=== PATIENT | female | born 1975 | race Two or more races ===

== ENCOUNTER 2019-06-09 09:49 | Emergency (ER) | payer MEDICARE, MEDICAID ==
--- NOTE | 2019-06-09 09:53 | EDM.PDOC ---
ED HPI GENERAL MEDICAL PROBLEM - General Stated Complaint: KNEE PAIN,CHEST DISCOMFORT Time Seen by Provider: 06/09/19 09:51 Source of Information: Reports: Patient History Limitations: Reports: No Limitations - History of Present Illness INITIAL COMMENTS - FREE TEXT/NARRATIVE: HISTORY AND PHYSICAL: History of present illness: Patient is a 44-year-old female who presents to the emergency room today with complaints of right chest pain 5 days. Patient states she has a pinpoint area of pain into the right mid chest which is aggravated with movement, bending over at the waist or taking in deep breaths. When she is sitting still and breathing easy she states the pain does not bother her. 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 States she recently moved to [place] and has been seeing Dr. Vásquez, who has made her a referral to establish with a marine insulator, but has yet to have a set date/time. Besides the chest pain she offers no other concerns or complaints. Patient denies any fever, chills, headache, change in vision, syncope or near syncope. Denies any back pain, shortness of breath or cough. Denies any abdominal pain, nausea, vomiting, diarrhea, constipation or dysuria. Has not noted any blood in urine or stool. Patient has been eating and drinking appropriately. Review of systems: As per history of present illness and below otherwise all systems reviewed and negative. Past medical history: As per history of present illness and as reviewed below otherwise noncontributory. Surgical history: As per history of present illness and as reviewed below otherwise noncontributory. Social history: See social history for further information Family history: As per history of present illness and as reviewed below otherwise noncontributory. Physical exam: General: Well developed and well nourished 44-year-old female. Alert and oriented. Nontoxic appearing and in no acute distress. HEENT: Atraumatic, normocephalic, pupils equal and reactive bilaterally, negative for conjunctival pallor or scleral icterus, mucous membranes moist, trachea midline. No drooling or trismus noted. No meningeal signs. No hot potato voice noted. Lungs: Clear to auscultation, breath sounds equal bilaterally, chest is tender with palpation to the right of the sternum. Heart: S1S2, regular rhythm with rate of 50's without overt murmur Abdomen: Soft, nondistended, obese, nontender. Negative for masses. Negative for costovertebral tenderness. Pelvis: Stable nontender. Skin: Intact, warm, dry. No lesions or rashes noted. Extremities: Atraumatic, moves all extremities per self without difficulty or deficits, negative for cords or calf pain. Neurovascular unremarkable. Neuro: Awake, alert, oriented. Cranial nerves II through XII unremarkable. Cerebellum unremarkable. Motor and sensory unremarkable throughout. Exam nonfocal. Notes: Patient states her pain is gone after receiving the IV toradol. Her EKG shows bradycardia; with rate of 40-50's. She states she has had a lower pulse rate since her cardiac surgery and does take a beta dayanara. No previous EKG to compare with. No acute findings. Lab work is unremarkable with the exception of anemia, which patient states she has a known history of. Admission was offered, she declines. She does request that we set her up an appointment with cardiology , as she has not yet established care with anyone as of yet. We discussed signs and symptoms that would prompt her to return to the emergency room. She is aware of the risks versus benefits of discharge versus admission. Diagnostics: CBC, CMP, Troponin, EKG, CXR Therapeutics: Aspirin, Saline Lock, Toradol Prescription: Diclofenac 50mg PRN Impression: Chest pain Anemia Plan: 1. Continue taking all your home medications as directed. 2. Follow up with your primary care provider Dr Vásquez at [facility] as we discussed. 3. We made you a follow up appointment to establish with a Legal Internship, Dr Mccallum (Dr Guajardo) for 06/29/2019 at 10am. Please check-in and register at [facility]. 4. Return to the ED as needed and as discussed. Definitive disposition and diagnosis as appropriate pending reevaluation and review of above. - Related Data Allergies Allergy/AdvReac Type Severity Reaction Status Date / Time No Known Allergies Allergy Verified 06/09/19 09:54 Home Meds: Home Meds ALPRAZolam 2 mg PO TID 06/09/19 [History] Diclofenac Sodium [Voltaren] 50 mg PO TID PRN #30 tab.ec 06/09/19 [Rx] Metoprolol Tartrate 50 mg PO Q12HR 06/09/19 [History] Omeprazole 40 mg PO 06/09/19 [History] Simvastatin 20 mg PO 06/09/19 [History] Spironolactone [Aldactone] 25 mg PO 06/09/19 [History] ED ROS GENERAL - Review of Systems Review Of Systems: ROS reveals no pertinent complaints other than HPI. ED EXAM, GENERAL - Physical Exam Exam: See Below (See dictation) Course - Vital Signs Last Recorded V/S: Last Vital Signs Temp 96.7 F 06/09/19 11:17 Pulse 55 L 06/09/19 11:17 Resp 19 06/09/19 11:17 BP 144/59 H 06/09/19 11:17 Pulse Ox 100 06/09/19 11:17 - Orders/Labs/Meds Orders: Active Orders 24 hr Category Date Time Status EKG Documentation Completion [RC] STAT Care 06/09/19 09:55 Active Sodium Chloride 0.9% [Normal Saline] 1,000 ml Med 06/09/19 10:09 Active IV STAT Sodium Chloride 0.9% [Saline Flush] Med 06/09/19 09:55 Active 10 ml FLUSH ASDIRECTED PRN Sodium Chloride 0.9% [Saline Flush] Med 06/09/19 09:55 Active 2.5 ml FLUSH ASDIRECTED PRN Saline Lock Insert [OM.PC] Stat Oth 06/09/19 09:55 Ordered Medication Orders Sodium Chloride (Normal Saline) 1,000 mls @ 125 mls/hr IV STAT ONE Stop: 06/09/19 18:08 Last Admin: 06/09/19 10:21 Dose: 125 mls/hr Sodium Chloride (Saline Flush) 10 ml FLUSH ASDIRECTED PRN PRN Reason: Keep Vein Open Sodium Chloride (Saline Flush) 2.5 ml FLUSH ASDIRECTED PRN PRN Reason: Keep Vein Open Labs: Laboratory Tests 06/09/19 06/09/19 Range/Units 10:50 10:50 WBC 8.30 (4.0-11.0) K/uL RBC 4.39 (4.30-5.90) M/uL Hgb 10.1 L (12.0-16.0) g/dL Hct 33.8 L (36.0-46.0) % MCV 77.0 L (80.0-98.0) fL MCH 23.0 L (27.0-32.0) pg MCHC 29.9 L (31.0-37.0) g/dL RDW Std Deviation 45.9 (28.0-62.0) fl RDW Coeff of Robi 16 H (11.0-15.0) % Plt Count 404 H (150-400) K/uL MPV 9.70 (7.40-12.00) fL Neut % (Auto) 65.5 (48.0-80.0) % Lymph % (Auto) 26.3 (16.0-40.0) % [place] % (Auto) 6.6 (0.0-15.0) % Eos % (Auto) 1.4 (0.0-7.0) % Baso % (Auto) 0.2 (0.0-1.5) % Neut # (Auto) 5.4 (1.4-5.7) K/uL Lymph # (Auto) 2.2 (0.6-2.4) K/uL [place] # (Auto) 0.6 (0.0-0.8) K/uL Eos # (Auto) 0.1 (0.0-0.7) K/uL Baso # (Auto) 0.0 (0.0-0.1) K/uL Nucleated RBC % 0.0 /100WBC Nucleated RBCs # 0 K/uL Sodium 139 (136-145) mmol/L Potassium 3.8 (3.5-5.1) mmol/L Chloride 105 (98-107) mmol/L Carbon Dioxide 22.2 (21.0-32.0) mmol/L BUN 14 (7.0-18.0) mg/dL Creatinine 0.7 (0.6-1.0) mg/dL Est Cr Clr Drug Dosing 109.41 mL/min Estimated GFR (MDRD) > 60.0 ml/min Glucose 87 (74-106) mg/dL Calcium 9.0 (8.5-10.1) mg/dL Total Bilirubin 0.4 (0.2-1.0) mg/dL AST 16 (15-37) IU/L ALT 17 (14-63) IU/L Alkaline Phosphatase 67 (46-116) U/L Troponin I < 0.050 (0.000-0.056) ng/mL Total Protein 8.8 H (6.4-8.2) g/dL Albumin 3.8 (3.4-5.0) g/dL Globulin 5.0 H (2.6-4.0) g/dL Albumin/Globulin Ratio 0.8 L (0.9-1.6) Meds: Medications Generic Name Dose Route Start Last Admin Trade Name Freq PRN Reason Stop Dose Admin Sodium Chloride 1,000 mls @ 125 mls/hr 06/09/19 10:09 06/09/19 10:21 Normal Saline IV 06/09/19 18:08 125 mls/hr STAT ONE Administration Sodium Chloride 10 ml 06/09/19 09:55 Saline Flush FLUSH ASDIRECTED PRN Keep Vein Open Sodium Chloride 2.5 ml 06/09/19 09:55 Saline Flush FLUSH ASDIRECTED PRN Keep Vein Open Discontinued Medications Generic Name Dose Route Start Last Admin Trade Name Freq PRN Reason Stop Dose Admin Aspirin 324 mg 06/09/19 09:55 06/09/19 10:20 Aspirin PO 06/09/19 09:56 324 mg ONETIME ONE Administration Ketorolac Tromethamine 30 mg 06/09/19 10:09 06/09/19 10:21 Toradol IVPUSH 06/09/19 10:10 30 mg ONETIME ONE Administration Departure - Departure Time of Disposition: 11:36 Disposition: Home, Self-Care 01 Clinical Impression: Chest pain Qualifiers: Chest pain type: chest pain on breathing Qualified Code(s): R07.1 - Chest pain on breathing Anemia Qualifiers: Anemia type: unspecified type Qualified Code(s): D64.9 - Anemia, unspecified Prescriptions: Diclofenac Sodium [Voltaren] 50 mg PO TID PRN #30 tab.ec PRN Reason: Pain Instructions: Anemia, Nonspecific Chest Pain, [id number] Referrals: Will Zhong MD [Physician] - 06/29/19 10:00 am (Please arrive 15 minutes prior to appointment. Please bring photo ID and insurance cards) Forms: ED Department Discharge Additional Instructions: The following information is given to patients seen in the emergency department who are being discharged to home. This information is to outline your options for follow-up care. We provide all patients seen in our emergency department with a follow-up referral. The need for follow-up, as well as the timing and circumstances, are variable depending upon the specifics of your emergency department visit. If you don't have a primary care physician on staff, we will provide you with a referral. We always advise you to contact your personal physician following an emergency department visit to inform them of the circumstance of the visit and for follow-up with them and/or the need for any referrals to a consulting specialist. The emergency department will also refer you to a specialist when appropriate. This referral assures that you have the opportunity for follow-up care with a specialist. All of these measure are taken in an effort to provide you with optimal care, which includes your follow-up. Under all circumstances we always encourage you to contact your private physician who remains a resource for coordinating your care. When calling for follow-up care, please make the office aware that this follow-up is from your recent emergency room visit. If for any reason you are refused follow-up, please contact the [facility] Emergency Department at and asked to speak to the emergency department charge nurse. [facility] Primary [facility] [address] [place] [id number] [place] [address] 1. Continue taking all your home medications as directed. 2. Follow up with your primary care provider Dr Vásquez at [facility] as we discussed. 3. We made you a follow up appointment to establish with a Legal Internship, Dr Mccallum (Dr Guajardo) for 06/29/2019 at 10am. Please check-in and register at [facility] 15 minutes before you appointment time. 4. Return to the ED as needed and as discussed. - My Orders Last 24 Hours: My Active Orders 06/09/19 09:55 EKG Documentation Completion [RC] STAT Sodium Chloride 0.9% [Saline Flush] 10 ml FLUSH ASDIRECTED PRN Sodium Chloride 0.9% [Saline Flush] 2.5 ml FLUSH ASDIRECTED PRN Saline Lock Insert [OM.PC] Stat 06/09/19 10:09 Sodium Chloride 0.9% [Normal Saline] 1,000 ml IV STAT - Assessment/Plan Last 24 Hours: My Active Orders 06/09/19 09:55 EKG Documentation Completion [RC] STAT Sodium Chloride 0.9% [Saline Flush] 10 ml FLUSH ASDIRECTED PRN Sodium Chloride 0.9% [Saline Flush] 2.5 ml FLUSH ASDIRECTED PRN Saline Lock Insert [OM.PC] Stat 06/09/19 10:09 Sodium Chloride 0.9% [Normal Saline] 1,000 ml IV STAT
[2019-06-09] MEDS ORDERED: Sodium Chloride 0.9% 10 ML Syringe FLUSH PRN (09:55)
[2019-06-09] MEDS ORDERED: Sodium Chloride 0.9% 2.5 ML Syringe FLUSH PRN (09:55)
[2019-06-09] MEDS ORDERED: Aspirin 81 MG Tab.Chew PO ONE (09:55)
[2019-06-09] MEDS ORDERED: Sodium Chloride 0.9% 1,000 ML IV ONE (10:09)
[2019-06-09] MEDS ORDERED: Ketorolac 30 MG/ML SDV IVPUSH ONE (10:09)
--- NOTE | 2019-06-09 11:17 | CR ---
Chest: Portable view of the chest was obtained. Comparison: No prior chest x-ray is available. Heart size and mediastinum are within normal limits for portable technique. Previous sternotomy is noted from prosthetic heart valve. Lungs are clear with no acute parenchymal change. Impression: 1. Previous sternotomy with prosthetic heart valve. 2. Nothing acute is otherwise seen on portable chest x-ray. Diagnostic code #2 MTDD
[2019-06-09 11:24] LABS: BLOOD UREA NITROGEN,BUN 14 mg/dL (7.0-18.0); CARBON DIOXIDE,CO2 22.2 mmol/L (21.0-32.0); CHLORIDE,CL 105 mmol/L (98-107); GLUCOSE RANDOM 87 mg/dL (74-106); POTASSIUM,K 3.8 mmol/L (3.5-5.1); SODIUM,NA 139 mmol/L (136-145)
== END 2019-06-09 11:54 | disposition home or self-care (01) ==
LOC: MW.ED 09:49
DX: R07.1 Chest pain on breathing (principal); D64.9 Anemia, unspecified; Z95.2 Presence of prosthetic heart valve
CPT/HCPCS: 36415; 71045; 80053; 84484; 85025; 93005; 96361; 96374; 99285; A9270; J1885; J7040; 96360; 99284

== ENCOUNTER 2019-08-20 20:25 | Emergency (ER) | payer MEDICARE, MEDICAID ==
[2019-08-20] MEDS ORDERED: Sodium Chloride 0.9% 1,000 ML IV ONE (21:33)
[2019-08-20] MEDS ORDERED: Ondansetron 4 MG/2 ML SDV IVPUSH ONE (21:40)
[2019-08-20] MEDS ORDERED: Ketorolac 30 MG/ML SDV IVPUSH ONE (22:01)
[2019-08-20] MEDS ORDERED: Ketorolac 30 MG/ML SDV ONE (22:03)
[2019-08-20 22:23] LABS: BLOOD UREA NITROGEN,BUN 15 mg/dL (7.0-18.0); CARBON DIOXIDE,CO2 24.5 mmol/L (21.0-32.0); CHLORIDE,CL 102 mmol/L (98-107); GLUCOSE RANDOM 92 mg/dL (74-106); LIPASE 171 U/L (73-393); POTASSIUM,K 4.1 mmol/L (3.5-5.1); SODIUM,NA 137 mmol/L (136-145)
--- NOTE | 2019-08-21 00:09 | EDM.PDOC ---
ED HPI GENERAL MEDICAL PROBLEM - General Chief Complaint: Abdominal Pain Stated Complaint: ABDOMINAL PAINS Time Seen by Provider: 08/20/19 21:35 Source of Information: Reports: Patient History Limitations: Reports: No Limitations - History of Present Illness Duration: Hour(s): Location: Reports: Abdomen Quality: Reports: Ache, Burning Severity: Mild Improves with: Reports: None Worsens with: Reports: None Associated Symptoms: Reports: No Other Symptoms, Nausea/Vomiting abdominal Pain Score (Numeric/FACES): 8 - Related Data Allergies Allergy/AdvReac Type Severity Reaction Status Date / Time No Known Allergies Allergy Verified 08/20/19 21:24 Home Meds: Home Meds ALPRAZolam 2 mg PO TID 06/09/19 [History] Metoprolol Tartrate 50 mg PO ASDIRECTED 06/09/19 [History] Omeprazole 40 mg PO DAILY 06/09/19 [History] Simvastatin 20 mg PO DAILY 06/09/19 [History] Spironolactone [Aldactone] 25 mg PO DAILY 06/09/19 [History] Past Medical History HEENT History: Reports: None Cardiovascular History: Reports: Arrhythmia Other Cardiovascular History: 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 Respiratory History: Reports: Bronchitis, Recurrent Gastrointestinal History: Reports: GERD 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 Musculoskeletal History: Reports: Arthritis Neurological History: Reports: None Psychiatric History: Reports: Anxiety Endocrine/Metabolic History: Reports: None Hematologic History: Reports: None - Infectious Disease History Infectious Disease History: Reports: Chicken Pox - Past Surgical History Cardiovascular Surgical History: Reports: Valve Replacement GI Surgical History: Reports: Cholecystectomy Female Surgical History: Reports: Tubal Ligation Social & Family History - Family History Family Medical History: Noncontributory - Tobacco Use Smoking Status *Q: Never Smoker - Caffeine Use Caffeine Use: Reports: None - Recreational Drug Use Recreational Drug Use: No ED ROS GENERAL - Review of Systems Review Of Systems: See Below Constitutional: Reports: No Symptoms HEENT: Reports: No Symptoms Respiratory: Reports: No Symptoms Cardiovascular: Reports: No Symptoms Endocrine: Reports: No Symptoms GI/Abdominal: Reports: No Symptoms, Abdominal Pain : Reports: No Symptoms Musculoskeletal: Reports: No Symptoms Skin: Reports: No Symptoms Neurological: Reports: No Symptoms Psychiatric: Reports: No Symptoms Hematologic/Lymphatic: Reports: No Symptoms Immunologic: Reports: No Symptoms ED EXAM, GI/ABD - Physical Exam Exam: See Below Exam Limited By: No Limitations General Appearance: Alert, WD/WN, No Apparent Distress Ears: Normal External Exam, Normal Canal, Hearing Grossly Normal, Normal TMs Nose: Normal Inspection, Normal Mucosa Throat/Mouth: Normal Inspection, Normal Lips Head: Atraumatic, Normocephalic Neck: Normal Inspection, Supple, Non-Tender Respiratory/Chest: No Respiratory Distress, Lungs Clear, Normal Breath Sounds, No Accessory Muscle Use, Chest Non-Tender Cardiovascular: Normal Peripheral Pulses, Regular Rate, Rhythm, No JVD, No Murmur GI/Abdominal Exam: Normal Bowel Sounds, Soft, Non-Tender, No Organomegaly, No Distention Back Exam: Normal Inspection, Full Range of Motion Extremities: Normal Inspection, Normal Range of Motion Neurological: Alert, Oriented, CN II-XII Intact, Normal Cognition, Normal Reflexes, No Motor/Sensory Deficits Psychiatric: Normal Affect, Normal Mood Skin Exam: Warm, Dry, Intact, Normal Color, No Rash Lymphatic: No Adenopathy Course - Vital Signs Text/Narrative:: She has been given fluids V fluids and feels better she will be given medicine for nausea and discharged home Last Recorded V/S: Last Vital Signs Temp 99.0 F 08/20/19 21:26 Pulse 60 08/20/19 21:26 Resp 18 08/20/19 21:26 BP 124/60 08/20/19 21:26 Pulse Ox 99 08/20/19 21:26 - Orders/Labs/Meds Orders: Active Orders 24 hr Category Date Time Status EKG 12 Lead [EKG Documentation Completion] [RC] STAT Care 08/20/19 22:11 Active Labs: Laboratory Tests 08/20/19 08/20/19 08/20/19 Range/Units 21:50 21:50 22:49 WBC 9.02 (4.0-11.0) K/uL RBC 4.54 (4.30-5.90) M/uL Hgb 10.8 L (12.0-16.0) g/dL Hct 34.7 L (36.0-46.0) % MCV 76.4 L (80.0-98.0) fL MCH 23.8 L (27.0-32.0) pg MCHC 31.1 (31.0-37.0) g/dL RDW Std Deviation 44.6 (28.0-62.0) fl RDW Coeff of Robi 16 H (11.0-15.0) % Plt Count 440 H (150-400) K/uL MPV 9.60 (7.40-12.00) fL Neut % (Auto) 82.8 H (48.0-80.0) % Lymph % (Auto) 12.2 L (16.0-40.0) % [place] % (Auto) 3.9 (0.0-15.0) % Eos % (Auto) 1.1 (0.0-7.0) % Baso % (Auto) 0.0 (0.0-1.5) % Neut # (Auto) 7.5 H (1.4-5.7) K/uL Lymph # (Auto) 1.1 (0.6-2.4) K/uL [place] # (Auto) 0.4 (0.0-0.8) K/uL Eos # (Auto) 0.1 (0.0-0.7) K/uL Baso # (Auto) 0.0 (0.0-0.1) K/uL Nucleated RBC % 0.0 /100WBC Nucleated RBCs # 0 K/uL Sodium 137 (136-145) mmol/L Potassium 4.1 (3.5-5.1) mmol/L Chloride 102 (98-107) mmol/L Carbon Dioxide 24.5 (21.0-32.0) mmol/L BUN 15 (7.0-18.0) mg/dL Creatinine 0.7 (0.6-1.0) mg/dL Est Cr Clr Drug Dosing 109.41 mL/min Estimated GFR (MDRD) > 60.0 ml/min Glucose 92 (74-106) mg/dL Calcium 8.7 (8.5-10.1) mg/dL Total Bilirubin 0.7 (0.2-1.0) mg/dL AST 21 (15-37) IU/L ALT 20 (14-63) IU/L Alkaline Phosphatase 71 (46-116) U/L Total Protein 8.7 H (6.4-8.2) g/dL Albumin 3.9 (3.4-5.0) g/dL Globulin 4.8 H (2.6-4.0) g/dL Albumin/Globulin Ratio 0.8 L (0.9-1.6) Lipase 171 (73-393) U/L Urine Color YELLOW Urine Appearance CLEAR Urine pH 6.0 (5.0-8.0) Ur Specific [place] >= 1.030 (1.001-1.035) Urine Protein NEGATIVE (NEGATIVE) mg/dL Urine Glucose (UA) NEGATIVE (NEGATIVE) mg/dL Urine Ketones NEGATIVE (NEGATIVE) mg/dL Urine Occult Blood NEGATIVE (NEGATIVE) Urine Nitrite NEGATIVE (NEGATIVE) Urine Bilirubin NEGATIVE (NEGATIVE) Urine Urobilinogen 0.2 (<2.0) EU/dL Ur Leukocyte Esterase NEGATIVE (NEGATIVE) Meds: Medications Discontinued Medications Generic Name Dose Route Start Last Admin Trade Name Adalidq PRN Reason Stop Dose Admin Sodium Chloride 1,000 mls @ 999 mls/hr 08/20/19 21:33 08/20/19 22:00 Normal Saline IV 08/20/19 22:33 999 mls/hr STAT ONE Administration Ketorolac Tromethamine 30 mg 08/20/19 22:01 08/20/19 22:05 Toradol IVPUSH 08/20/19 22:02 30 mg ONETIME ONE Administration Ketorolac Tromethamine Confirm 08/20/19 22:03 Toradol Administered 08/20/19 22:04 Dose 30 mg .ROUTE .STK-MED ONE Ondansetron HCl 4 mg 08/20/19 21:40 08/20/19 22:05 Zofran IVPUSH 08/20/19 21:41 4 mg ONETIME ONE Administration Departure - Departure Time of Disposition: 00:10 Disposition: Home, Self-Care 01 Condition: Good Clinical Impression: Gastroenteritis - Discharge Information Referrals: Efra Vásquez MD [Primary Care Provider] - Sepsis Event Note - Evaluation Sepsis Screening Result: No Definite Risk - Focused Exam Vital Signs: Vital Signs Temp Pulse Resp BP Pulse Ox 08/20/19 21:26 99.0 F 60 18 124/60 99 Date Exam was Performed: 08/21/19 Time Exam was Performed: 00:04 - My Orders Last 24 Hours: My Active Orders 08/20/19 22:11 EKG 12 Lead [EKG Documentation Completion] [RC] STAT - Assessment/Plan Last 24 Hours: My Active Orders 01/02/20 22:11 EKG 12 Lead [EKG Documentation Completion] [RC] STAT
== END 2019-08-21 00:21 | disposition home or self-care (01) ==
LOC: MW.ED 20:25
DX: K52.9 Noninfective gastroenteritis and colitis, unspecified (principal); K21.9 Gastro-esophageal reflux disease without esophagitis; M19.90 Unspecified osteoarthritis, unspecified site; F41.9 Anxiety disorder, unspecified; Z79.899 Other long term (current) drug therapy
CPT/HCPCS: 36415; 80053; 81003; 83690; 85025; 93005; 96361; 96374; 96375; 99284; J1885; J2405; J7030; 99283

== ENCOUNTER 2019-09-30 18:27 | Emergency (ER) | payer MEDICARE, MEDICAID ==
--- NOTE | 2019-09-30 19:10 | EDM.PDOC ---
ED HPI GENERAL MEDICAL PROBLEM - General Chief Complaint: General Stated Complaint: FLU SYMPTOMS Time Seen by Provider: 09/30/19 18:37 Source of Information: Reports: Patient History Limitations: Reports: No Limitations - History of Present Illness INITIAL COMMENTS - FREE TEXT/NARRATIVE: HISTORY AND PHYSICAL: History of present illness: Review of systems: As per history of present illness and below otherwise all systems reviewed and negative. Past medical history: As per history of present illness and as reviewed below otherwise noncontributory. Surgical history: As per history of present illness and as reviewed below otherwise noncontributory. Social history: See social history for further information Family history: As per history of present illness and as reviewed below otherwise noncontributory. Physical exam: General: HEENT: Atraumatic, normocephalic, pupils equal and reactive bilaterally, negative for conjunctival pallor or scleral icterus, mucous membranes moist, TMs normal bilaterally, throat clear, neck supple, nontender, trachea midline. No drooling or trismus noted. No meningeal signs. No hot potato voice noted. Lungs: Clear to auscultation, breath sounds equal bilaterally, chest nontender. Heart: S1S2, regular rate and rhythm without overt murmur Abdomen: Soft, nondistended, nontender. Negative for masses or hepatosplenomegaly. Negative for costovertebral tenderness. Pelvis: Stable nontender. Genitourinary: Deferred. Rectal: Deferred. Skin: Intact, warm, dry. No lesions or rashes noted. Extremities: Atraumatic, moves all extremities per self without difficulty or deficits, negative for cords or calf pain. Neurovascular unremarkable. Neuro: Awake, alert, oriented. Cranial nerves II through XII unremarkable. Cerebellum unremarkable. Motor and sensory unremarkable throughout. Exam nonfocal. Notes: Supportive care measures were reviewed and discussed. Voices understanding and is agreeable to plan of care. Denies any further questions or concerns at this time. Diagnostics: Influenza Therapeutics: Prescription: Impression: Plan: Definitive disposition and diagnosis as appropriate pending reevaluation and review of above. Headache Pain Score (Numeric/FACES): 8 - Related Data Allergies Allergy/AdvReac Type Severity Reaction Status Date / Time No Known Allergies Allergy Verified 09/30/19 18:38 Home Meds: Home Meds ALPRAZolam 2 mg PO TID 06/09/19 [History] Omeprazole 40 mg PO DAILY 06/09/19 [History] Simvastatin 20 mg PO DAILY 06/09/19 [History] Spironolactone [Aldactone] 25 mg PO DAILY 06/09/19 [History] Ondansetron [Zofran Odt] 8 mg PO Q6H PRN #20 tab.rapdis 08/21/19 [Rx] Past Medical History HEENT History: Reports: None Cardiovascular History: Reports: Arrhythmia Other Cardiovascular History: 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 Respiratory History: Reports: Bronchitis, Recurrent Gastrointestinal History: Reports: GERD 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 Musculoskeletal History: Reports: Arthritis Neurological History: Reports: None Psychiatric History: Reports: Anxiety Endocrine/Metabolic History: Reports: None Hematologic History: Reports: None - Infectious Disease History Infectious Disease History: Reports: Chicken Pox - Past Surgical History Cardiovascular Surgical History: Reports: Valve Replacement GI Surgical History: Reports: Cholecystectomy Female Surgical History: Reports: Tubal Ligation Social & Family History - Family History Family Medical History: Noncontributory - Tobacco Use Smoking Status *Q: Never Smoker Second Hand Smoke Exposure: No - Caffeine Use Caffeine Use: Reports: None - Recreational Drug Use Recreational Drug Use: No Course - Vital Signs Last Recorded V/S: Last Vital Signs Temp 97.1 F 09/30/19 18:41 Pulse 61 09/30/19 18:41 Resp 16 09/30/19 18:41 BP 122/62 09/30/19 18:41 Pulse Ox 96 09/30/19 18:41 - Orders/Labs/Meds Orders: Active Orders 24 hr Category Date Time Status INFLUENZA A+B AG SCREEN [RM] Stat Lab 09/30/19 19:04 Ordered Departure - Discharge Information Referrals: Efra Vásquez MD [Primary Care Provider] - Sepsis Event Note - Evaluation Sepsis Screening Result: No Definite Risk - Focused Exam Vital Signs: Vital Signs Temp Pulse Resp BP Pulse Ox 09/30/19 18:41 97.1 F 61 16 122/62 96 Date Exam was Performed: 09/30/19 Time Exam was Performed: 19:09 - My Orders Last 24 Hours: My Active Orders 09/30/19 19:04 INFLUENZA A+B AG SCREEN [RM] Stat - Assessment/Plan Last 24 Hours: My Active Orders 09/30/19 19:04 INFLUENZA A+B AG SCREEN [RM] Stat
--- NOTE | 2019-09-30 19:39 | EDM.PDOC ---
ED HPI GENERAL MEDICAL PROBLEM - General Chief Complaint: General Stated Complaint: FLU SYMPTOMS Time Seen by Provider: 09/30/19 18:37 Source of Information: Reports: Patient History Limitations: Reports: No Limitations - History of Present Illness INITIAL COMMENTS - FREE TEXT/NARRATIVE: CC cough HPI: This is a 44-year-old female whose is sick at home with a viral upper respiratory illness. Patient is developed a cough and a low-grade fever. She has no nausea vomiting constipation diarrhea but is having a sore throat and body aches. No chest pain PMHX/PSHX: Coronary artery disease with bypass surgery Social History: Negative for tobacco, negative for alcohol, negative for street drugs or marijuana Family history: Hypertension ROS: see chart PE: VS afebrile vital signs stable General: No apparent distress Head: Atraumatic normocephalic no lumps bumps or bruises Eyes: EOMI PERRLA Ears: TMs intact no hemotympanum no signs of infection no mastoid tenderness Nose: No epistaxis nares patent no septal wall hematoma Throat: No pharyngeal erythema or exudate no tonsillar enlargement Neck: Supple, no cervical lymphadenopathy Chest wall: No point tenderness Heart: Regular rate and rhythm without murmur gallop or rub Lungs: Clear to auscultation and percussion without rales rhonchi or wheeze Abdomen: Soft nontender nondistended without guarding rigidity or rebound Neck: No spinal point tenderness full range of motion in all 6 directions Back: No spinal paraspinal or CVA tenderness Extremities: full rom through out. no effusions skin: Warm dry intact no rashes neurologic: cranial nerves II through XII intact. No focal motor or sensory deficits noted MDM: Differential diagnosis: ED course: No signs of pneumonia or pharyngitis. I suspect viral illness. Patient stable for discharge. Not hypoxic tachypneic or exhibiting any respiratory distress or retractions Diagnosis: Viral URI Disposition: Home Headache Pain Score (Numeric/FACES): 8 - Related Data Allergies Allergy/AdvReac Type Severity Reaction Status Date / Time No Known Allergies Allergy Verified 09/30/19 18:38 Home Meds: Home Meds ALPRAZolam 2 mg PO TID 06/09/19 [History] Omeprazole 40 mg PO DAILY 06/09/19 [History] Simvastatin 20 mg PO DAILY 06/09/19 [History] Spironolactone [Aldactone] 25 mg PO DAILY 06/09/19 [History] Ondansetron [Zofran Odt] 8 mg PO Q6H PRN #20 tab.kranthidis 08/21/19 [Rx] Past Medical History HEENT History: Reports: None Cardiovascular History: Reports: Arrhythmia Other Cardiovascular History: 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 Respiratory History: Reports: Bronchitis, Recurrent Gastrointestinal History: Reports: GERD APPEALS RN History: Reports: Other APPEALS RN History: x4 Musculoskeletal History: Reports: Arthritis Neurological History: Reports: None Psychiatric History: Reports: Anxiety Endocrine/Metabolic History: Reports: None Hematologic History: Reports: None - Infectious Disease History Infectious Disease History: Reports: Chicken Pox - Past Surgical History Cardiovascular Surgical History: Reports: Valve Replacement GI Surgical History: Reports: Cholecystectomy Female Surgical History: Reports: Tubal Ligation Social & Family History - Family History Family Medical History: Noncontributory - Tobacco Use Smoking Status *Q: Never Smoker Second Hand Smoke Exposure: No - Caffeine Use Caffeine Use: Reports: None - Recreational Drug Use Recreational Drug Use: No ED ROS GENERAL - Review of Systems Review Of Systems: Comprehensive ROS is negative, except as noted in HPI. ED EXAM, GENERAL - Physical Exam Exam: See Below Free Text/Narrative:: See my dictation Course - Vital Signs Last Recorded V/S: Last Vital Signs Temp 36.2 C 09/30/19 18:41 Pulse 61 09/30/19 18:41 Resp 16 09/30/19 18:41 BP 122/62 09/30/19 18:41 Pulse Ox 96 09/30/19 18:41 Departure - Departure Time of Disposition: 19:38 Disposition: Home, Self-Care 01 Clinical Impression: Viral URI - Discharge Information Instructions: Upper Respiratory Infection, Adult, [id number] Referrals: Efra Vásquez MD [Primary Care Provider] - Forms: ED Department Discharge Additional Instructions: URI You were evaluated and treated in the emergency department for an upper respiratory infection (URI). URIs may include nasal congestion, sore throat, sinus pressure, headaches, earaches, eye irritation, cough and fevers. Nearly all URIs are caused by viruses and antibiotics will not help and are not recommended. Viral infections like this are self-limited. The goal of treatment is symptom relief. Take TheraFlu or Tylenol and ibuprofen as needed for body aches. Push fluids. Place a humidifier in the bedroom. You should return immediately if: -symptoms are worsening -you develop shortness of breath -you develop severe headache or neck stiffness -you develop any other severe pain Sepsis Event Note - Evaluation Sepsis Screening Result: No Definite Risk - Focused Exam Vital Signs: Vital Signs Temp Pulse Resp BP Pulse Ox 09/30/19 18:41 36.2 C 61 16 122/62 96 Date Exam was Performed: 09/30/19 Time Exam was Performed: 19:37
== END 2019-09-30 20:03 | disposition home or self-care (01) ==
LOC: MW.ED 18:27
DX: J06.9 Acute upper respiratory infection, unspecified (principal); K21.9 Gastro-esophageal reflux disease without esophagitis; J40 Bronchitis, not specified as acute or chronic; M19.90 Unspecified osteoarthritis, unspecified site; F41.9 Anxiety disorder, unspecified; Z79.899 Other long term (current) drug therapy
CPT/HCPCS: 87804; 99282; 99283

== ENCOUNTER 2020-05-06 23:18 | Emergency (ER) | payer MEDICARE, MEDICAID ==
[2020-05-07] MEDS ORDERED: Sodium Chloride 0.9% 10 ML Syringe FLUSH PRN (00:27)
[2020-05-07] MEDS ORDERED: Acetaminophen 500 MG Tab PO ONE (00:27)
[2020-05-07] MEDS ORDERED: Sodium Chloride 0.9% 2.5 ML Syringe FLUSH PRN (00:27)
[2020-05-07] MEDS ORDERED: fentaNYL 50 MCG/ML SDV IVPUSH ONE (00:27)
[2020-05-07] MEDS ORDERED: Alum Hydrox/Mag Hydrox/Simeth 15 ML, Lidocaine 2% 5 ML PO ONE ×2 (00:28)
--- NOTE | 2020-05-07 01:20 | EDM.PDOC ---
ED [facility] GENERAL MEDICAL PROBLEM - General Chief Complaint: Abdominal Pain Stated Complaint: ABDOMINAL PAIN Time Seen by Provider: 05/06/20 23:20 Source of Information: Reports: Patient History Limitations: Reports: No Limitations - History of Present Illness INITIAL COMMENTS - FREE TEXT/NARRATIVE: 45-year-old female with past medical history of WPW syndrome status post ablation, status post tricuspid valve replacement, hyperlipidemia, GERD, gastroparesis presenting with abdominal pain. Patient worse the onset of periumbilical abdominal pain around 30 minutes prior to arrival. Pain started at rest. Radiates to the suprapubic region of the abdomen but worse in the periumbilical region. Pain is better while lying supine, nothing makes it worse. Pain is been constant since the onset, rated as 5 out of 10, described as "twisting". Accompanied by some nausea but no vomiting. Nausea has since resolved. She denies any fever, chest pain, shortness of breath, hematemesis, diarrhea, rectal bleeding, vaginal bleeding or discharge, dysuria, urinary frequency, flank pain, or hematuria. ROS: A 10-point review of systems was negative, except as noted in the HPI (or in the ROS section of this note). Past medical history: Reviewed, no additional pertinent history. Surgical history: Reviewed in system, no additional pertinent history. Social history: Reviewed in system, no additional pertinent history. Family history: Reviewed in system, no additional pertinent history. PHYSICAL EXAM Vital signs reviewed. Nursing notes reviewed. Constitutional: Awake, alert, non-distressed. Head: Normocephalic, atraumatic. Eyes: EOMI, conjunctiva normal, no discharge, no scleral icterus. Ears, Nose, Throat: External ears and nose normal, moist oral mucosa. Cardiovascular: 2+ radial pulse, capillary refill less than 2 seconds. Pulmonary: normal work of breathing, no accessory muscle use. Abdomen/GI: Exam somewhat limited by habitus (BMI 42), soft, mild periumbilical tenderness, nondistended, no guarding or rigidity, no masses. No CVA tenderness. Musculoskeletal: No deformities. Integumentary: Appropriate color for ethnicity, warm, dry, no pallor or jaundice, no rash. Neurologic: Alert, answering questions appropriately, normal speech, no facial droop, moving all extremities well. Psychiatric: Appropriate mood and affect, normal thought process. abdomen Pain Score (Numeric/FACES): 9 - Related Data Allergies Allergy/AdvReac Type Severity Reaction Status Date / Time No Known Allergies Allergy Verified 05/06/20 23:42 Home Meds: Home Meds ALPRAZolam 2 mg PO TID 06/09/19 [History] Omeprazole 40 mg PO DAILY 06/09/19 [History] Simvastatin 20 mg PO DAILY 06/09/19 [History] Spironolactone [Aldactone] 25 mg PO DAILY 06/09/19 [History] Acetaminophen [Acetaminophen Extra Strength] 500 - 1,000 mg PO Q6H PRN #30 tablet 05/07/20 [Rx] Ibuprofen 400 mg PO Q6H PRN #20 tablet 05/07/20 [Rx] Past Medical History HEENT History: Reports: Impaired Vision Cardiovascular History: Reports: Arrhythmia, High Cholesterol Other Cardiovascular History: 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 Respiratory History: Reports: Bronchitis, Recurrent Gastrointestinal History: Reports: GERD Genitourinary History: Reports: None [employer] History: Reports: Other [employer] History: x4 Musculoskeletal History: Reports: Arthritis Neurological History: Reports: None Psychiatric History: Reports: Anxiety Endocrine/Metabolic History: Reports: None Hematologic History: Reports: None - Infectious Disease History Infectious Disease History: Reports: Chicken Pox - Past Surgical History HEENT Surgical History: Reports: None Cardiovascular Surgical History: Reports: Valve Replacement Respiratory Surgical History: Reports: None GI Surgical History: Reports: Cholecystectomy Female Surgical History: Reports: Tubal Ligation Musculoskeletal Surgical History: Reports: None Social & Family History - Family History Family Medical History: Noncontributory - Tobacco Use Smoking Status *Q: Never Smoker Second Hand Smoke Exposure: No - Caffeine Use Caffeine Use: Reports: Coffee - Recreational Drug Use Recreational Drug Use: No ED ROS GENERAL - Review of Systems Review Of Systems: See Below ED EXAM, GI/ABD - Physical Exam Exam: See Below Course - Vital Signs Text/Narrative:: 45-year-old female presenting with sudden onset periumbilical abdominal pain and some nausea. Patient hemodynamically stable, afebrile, well-appearing, looks nontoxic. Differential diagnosis includes but is not limited to: Appendicitis, pancreatitis, gastritis, ileus, bowel obstruction, intra-abdominal infection, kidney stone, UTI, ovarian cyst, ovarian torsion, , uterine fibroids, AAA, enteritis, and many others. CBC shows mild leukocytosis, mild microcytic anemia, normal platelets. Lactate within normal limits. Electrolytes and renal function reassuring. Troponin testing negative. Lipase within normal limits. LFTs reassuring. Urinalysis bland, no blood or evidence of infection. CT abdomen/pelvis shows a cirrhotic liver but no evidence of an acute process in the abdomen or pelvis. Pain improved after analgesic medications. No evidence of an intra-abdominal surgical emergency or infection such as appendicitis or pancreatitis. No evidence of ileus or bowel obstruction. Urinalysis is not infected. No evidence of a pelvic abnormality based on CT imaging and low suspicion for ovarian torsion or cyst or infection based on location of pain and patient's description of her symptoms. No evidence of AAA. Given negative work-up and well appearance, patient is stable to discharge home with outpatient primary care follow-up. Recommended [id number] acetaminophen ibuprofen as needed for pain. Plan: Patient is stable to discharge home with outpatient primary care clinic follow-up. Strict emergency department return precautions were provided, patient indicated understanding. All questions were answered prior to departure. Discharged in good condition. Last Recorded V/S: Last Vital Signs Temp 36.2 C 05/06/20 23:34 Pulse 57 L 05/07/20 02:15 Resp 17 05/07/20 02:15 BP 126/49 L 05/07/20 02:15 Pulse Ox 98 05/07/20 02:15 - Orders/Labs/Meds Orders: Active Orders 24 hr Category Date Time Status Pulse Oximetry [RC] ASDIRECTED Care 05/07/20 00:27 Active Nothing Per Oral Diet [DIET] Diet 05/06/20 Dinner Active Sodium Chloride 0.9% [Saline Flush] Med 05/07/20 00:27 Active 10 ml FLUSH ASDIRECTED PRN Sodium Chloride 0.9% [Saline Flush] Med 05/07/20 00:27 Active 2.5 ml FLUSH ASDIRECTED PRN Saline Lock Insert [OM.PC] Stat Oth 05/07/20 00:27 Ordered Medication Orders Sodium Chloride (Saline Flush) 10 ml FLUSH ASDIRECTED PRN PRN Reason: Keep Vein Open Last Admin: 05/07/20 00:58 Dose: 10 ml Documented by: MC Sodium Chloride (Saline Flush) 2.5 ml FLUSH ASDIRECTED PRN PRN Reason: Keep Vein Open Last Admin: 05/07/20 00:58 Dose: 2.5 ml Documented by: MC Labs: Laboratory Tests 05/06/20 05/06/20 05/07/20 Range/Units 23:51 23:51 01:00 WBC 12.06 H (4.0-11.0) K/uL RBC 4.44 (4.30-5.90) M/uL Hgb 10.8 L (12.0-16.0) g/dL Hct 34.7 L (36.0-46.0) % MCV 78.2 L (80.0-98.0) fL MCH 24.3 L (27.0-32.0) pg MCHC 31.1 (31.0-37.0) g/dL RDW Std Deviation 41.9 (28.0-62.0) fl RDW Coeff of Robi 15 (11.0-15.0) % Plt Count 391 (150-400) K/uL MPV 9.70 (7.40-12.00) fL Neut % (Auto) 77.5 (48.0-80.0) % Lymph % (Auto) 13.8 L (16.0-40.0) % [place] % (Auto) 7.6 (0.0-15.0) % Eos % (Auto) 0.9 (0.0-7.0) % Baso % (Auto) 0.2 (0.0-1.5) % Neut # (Auto) 9.3 H (1.4-5.7) K/uL Lymph # (Auto) 1.7 (0.6-2.4) K/uL [place] # (Auto) 0.9 H (0.0-0.8) K/uL Eos # (Auto) 0.1 (0.0-0.7) K/uL Baso # (Auto) 0.0 (0.0-0.1) K/uL Lactate (0.20-2.00) mmol/L Sodium (136-145) mmol/L Potassium (3.5-5.1) mmol/L Chloride (98-107) mmol/L Carbon Dioxide (21.0-32.0) mmol/L BUN (7.0-18.0) mg/dL Creatinine (0.6-1.0) mg/dL Est Cr Clr Drug Dosing mL/min Estimated GFR (MDRD) ml/min Glucose (74-106) mg/dL Calcium (8.5-10.1) mg/dL Total Bilirubin (0.2-1.0) mg/dL AST (15-37) IU/L ALT (14-63) IU/L Alkaline Phosphatase (46-116) U/L Troponin I (0.000-0.056) ng/mL Total Protein (6.4-8.2) g/dL Albumin (3.4-5.0) g/dL Globulin (2.6-4.0) g/dL Albumin/Globulin Ratio (0.9-1.6) Lipase (73-393) U/L Urine Color YELLOW Urine Appearance CLEAR Urine pH 5.5 (5.0-8.0) Ur Specific [place] 1.020 (1.001-1.035) Urine Protein NEGATIVE (NEGATIVE) mg/dL Urine Glucose (UA) NEGATIVE (NEGATIVE) mg/dL Urine Ketones NEGATIVE (NEGATIVE) mg/dL Urine Occult Blood NEGATIVE (NEGATIVE) Urine Nitrite NEGATIVE (NEGATIVE) Urine Bilirubin NEGATIVE (NEGATIVE) Urine Urobilinogen 0.2 (<2.0) EU/dL Ur Leukocyte Esterase NEGATIVE (NEGATIVE) Urine HCG, Qual NEGATIVE (NEGATIVE) 05/07/20 05/07/20 Range/Units 01:00 01:00 WBC (4.0-11.0) K/uL RBC (4.30-5.90) M/uL Hgb (12.0-16.0) g/dL Hct (36.0-46.0) % MCV (80.0-98.0) fL MCH (27.0-32.0) pg MCHC (31.0-37.0) g/dL RDW Std Deviation (28.0-62.0) fl RDW Coeff of Robi (11.0-15.0) % Plt Count (150-400) K/uL MPV (7.40-12.00) fL Neut % (Auto) (48.0-80.0) % Lymph % (Auto) (16.0-40.0) % [place] % (Auto) (0.0-15.0) % Eos % (Auto) (0.0-7.0) % Baso % (Auto) (0.0-1.5) % Neut # (Auto) (1.4-5.7) K/uL Lymph # (Auto) (0.6-2.4) K/uL [place] # (Auto) (0.0-0.8) K/uL Eos # (Auto) (0.0-0.7) K/uL Baso # (Auto) (0.0-0.1) K/uL Lactate 0.9 (0.20-2.00) mmol/L Sodium 136 (136-145) mmol/L Potassium 3.8 (3.5-5.1) mmol/L Chloride 101 (98-107) mmol/L Carbon Dioxide 27.1 (21.0-32.0) mmol/L BUN 15 (7.0-18.0) mg/dL Creatinine 0.8 (0.6-1.0) mg/dL Est Cr Clr Drug Dosing 94.76 mL/min Estimated GFR (MDRD) > 60.0 ml/min Glucose 105 (74-106) mg/dL Calcium 9.1 (8.5-10.1) mg/dL Total Bilirubin 0.5 (0.2-1.0) mg/dL AST 16 (15-37) IU/L ALT 21 (14-63) IU/L Alkaline Phosphatase 66 (46-116) U/L Troponin I < 0.050 (0.000-0.056) ng/mL Total Protein 8.3 H (6.4-8.2) g/dL Albumin 3.9 (3.4-5.0) g/dL Globulin 4.4 H (2.6-4.0) g/dL Albumin/Globulin Ratio 0.9 (0.9-1.6) Lipase 152 (73-393) U/L Urine Color Urine Appearance Urine pH (5.0-8.0) Ur Specific [place] (1.001-1.035) Urine Protein (NEGATIVE) mg/dL Urine Glucose (UA) (NEGATIVE) mg/dL Urine Ketones (NEGATIVE) mg/dL Urine Occult Blood (NEGATIVE) Urine Nitrite (NEGATIVE) Urine Bilirubin (NEGATIVE) Urine Urobilinogen (<2.0) EU/dL Ur Leukocyte Esterase (NEGATIVE) Urine HCG, Qual (NEGATIVE) Meds: Medications Generic Name Dose Route Start Last Admin Trade Name Freq PRN Reason Stop Dose Admin Sodium Chloride 10 ml 05/07/20 00:27 05/07/20 00:58 Saline Flush FLUSH 10 ml ASDIRECTED PRN Administration Keep Vein Open Sodium Chloride 2.5 ml 05/07/20 00:27 05/07/20 00:58 Saline Flush FLUSH 2.5 ml ASDIRECTED PRN Administration Keep Vein Open Discontinued Medications Generic Name Dose Route Start Last Admin Trade Name Freq PRN Reason Stop Dose Admin Acetaminophen 1,000 mg 05/07/20 00:27 05/07/20 00:57 Tylenol Extra Strength PO 05/07/20 00:28 1,000 mg ONETIME ONE Administration Al Hydroxide/Mg Hydroxide 15 0 ml 05/07/20 00:28 05/07/20 00:54 ml/ Lidocaine HCl 5 ml PO 05/07/20 00:29 1 each ONETIME ONE Administration Fentanyl 100 mcg 05/07/20 00:27 05/07/20 00:55 Fentanyl IVPUSH 05/07/20 00:28 100 mcg ONETIME ONE Administration Iopamidol 100 ml 05/07/20 01:37 05/07/20 01:37 Isovue-370 (76%) IVPUSH 05/07/20 01:38 100 ml ONETIME ONE Administration Departure - Departure Time of Disposition: 02:40 Disposition: Home, Self-Care 01 Condition: Good Clinical Impression: Periumbilical abdominal pain - Discharge Information *PRESCRIPTION DRUG MONITORING PROGRAM REVIEWED*: Not Applicable *COPY OF PRESCRIPTION DRUG MONITORING REPORT IN PATIENT NELY: Not Applicable Instructions: Abdominal Pain, Adult, [id number] Referrals: Efra Vásquez MD [Primary Care Provider] - 1 Week (As needed for follow up of symptoms.) Forms: ED Department Discharge Additional Instructions: You were seen in the emergency department for abdominal pain and nausea. At this point your blood work, urine testing, and CT scan look reassuring. The cause of your pain is not immediately apparent but there is no evidence of an acute emergency medical condition were reviewed have to admit you to the hospital or have you seen by a surgeon. I recommend you follow-up closely with your primary doctor the next several days for reevaluation if you are not doing better. I recommend [id number] extra strength acetaminophen (1000 mg every 6 hours) and ibuprofen (400 mg every 6 hours) to help treat your pain. Warning signs to come back to the ER include worsening pain, repeated vomiting, fever of 100.4 higher, vomiting blood, bloody stools, or any other new or concerning symptoms. Please return the emergency department immediately if your symptoms worsen or if you feel worse. Thank you for choosing the [facility] emergency department in [place] for your medical needs today. It was a pleasure caring for you. The following information is given to patients seen in the emergency department who are being discharged. This information is to outline your options for follow-up care. We provide all patients seen in our emergency department with a follow-up referral. The need for follow-up, as well as the timing and circumstances, are variable depending upon the specifics of your emergency department visit. If you don't have a primary care physician on staff, we will provide you with a referral. We always advise you to contact your personal physician following an emergency department visit to inform them of the circumstance of the visit and for follow-up with them and/or the need for any referrals to a consulting specialist. The emergency department will also refer you to a specialist when appropriate. This referral assures that you have the opportunity for follow-up care with a specialist. All of these measure are taken in an effort to provide you with optimal care, which includes your follow-up. Under all circumstances we always encourage you to contact your private physician who remains a resource for coordinating your care. When calling for follow-up care, please make the office aware that this follow-up is from your recent emergency room visit. If for any reason you are refused follow-up, please contact the [facility] Emergency Department at and asked to speak to the emergency department charge nurse. If you do not have a primary care physician that is caring for you, you can contact these clinics below to set up an appointment to establish care: [facility] - Primary [facility] [address] [place] [address] [facility] [address] [place] [id number] Sepsis Event Note (ED) - Evaluation Sepsis Screening Result: No Definite Risk - Focused Exam Vital Signs: Vital Signs Temp Pulse Resp BP Pulse Ox 05/07/20 02:15 57 L 17 126/49 L 98 05/06/20 23:34 36.2 C 64 18 134/76 100 - My Orders Last 24 Hours: My Active Orders 05/06/20 Dinner Nothing Per Oral Diet [DIET] 05/07/20 00:27 Pulse Oximetry [RC] ASDIRECTED Sodium Chloride 0.9% [Saline Flush] 10 ml FLUSH ASDIRECTED PRN Sodium Chloride 0.9% [Saline Flush] 2.5 ml FLUSH ASDIRECTED PRN Saline Lock Insert [OM.PC] Stat - Assessment/Plan Last 24 Hours: My Active Orders 05/06/20 Dinner Nothing Per Oral Diet [DIET] 05/07/20 00:27 Pulse Oximetry [RC] ASDIRECTED Sodium Chloride 0.9% [Saline Flush] 10 ml FLUSH ASDIRECTED PRN Sodium Chloride 0.9% [Saline Flush] 2.5 ml FLUSH ASDIRECTED PRN Saline Lock Insert [OM.PC] Stat
[2020-05-07 01:33] LABS: BLOOD UREA NITROGEN,BUN 15 mg/dL (7.0-18.0); CARBON DIOXIDE,CO2 27.1 mmol/L (21.0-32.0); CHLORIDE,CL 101 mmol/L (98-107); GLUCOSE RANDOM 105 mg/dL (74-106); LIPASE 152 U/L (73-393); POTASSIUM,K 3.8 mmol/L (3.5-5.1); SODIUM,NA 136 mmol/L (136-145)
[2020-05-07] MEDS ORDERED: Iopamidol 755 Mg/ML 100 ML Bottle IVPUSH ONE (01:37)
--- NOTE | 2020-05-07 02:32 | CT ---
INDICATION: Periumbilical pain TECHNIQUE: CT abdomen and pelvis acquired with IV contrast. 100 mL of Isovue 370 administered. COMPARISON: None available FINDINGS: Lower chest: Sternotomy sutures and a tricuspid valve prosthesis. Liver: Nodular hepatic surface consistent with cirrhosis. Mildly heterogeneous hepatic parenchyma. Spleen: Unremarkable. Pancreas: Unremarkable. Gallbladder and bile ducts: Cholecystectomy. Adrenal glands: Unremarkable. Kidneys: Unremarkable. GI tract: Mild asymmetrical distal gastric wall prominence is at least partially related to incomplete distention. No bowel obstruction. A normal appendix. No significant pericolonic changes. Vascular structures: Unremarkable. Mild prominence of the gonadal veins. Lymph nodes: Unremarkable. Miscellaneous: No significant free fluid or free air. A tiny fat containing paraumbilical hernia. Pelvic Organs: A mildly lobulated uterine fundus; myomatous changes are not excluded. No gross bladder abnormality seen. Bones: Unremarkable for age. IMPRESSION: No evidence of an acute process in the abdomen or pelvis. A cirrhotic liver. Mildly inhomogeneous hepatic parenchyma. If indicated, consider contrast MRI evaluation. Mild prominence of the gonadal veins. Correlate clinically for pelvic congestion syndrome. Dictated by Gautam Gatica MD @ 05/07/2020 2:29:54 AM Please note that all CT scans at this facility use dose modulation, iterative reconstruction, and/or weight-based dosing when appropriate to reduce radiation dose to as low as reasonably achievable. Dictated by: Gautam Gatica MD @ 05/07/2020 02:29:57 (Electronically Signed)
== END 2020-05-07 02:52 | disposition home or self-care (01) ==
LOC: MW.ED 23:18
DX: R10.33 Periumbilical pain (principal); E78.5 Hyperlipidemia, unspecified; K21.9 Gastro-esophageal reflux disease without esophagitis; F41.9 Anxiety disorder, unspecified; I45.6 Pre-excitation syndrome; Z79.899 Other long term (current) drug therapy
CPT/HCPCS: 36415; 74177; 80053; 81003; 81025; 83605; 83690; 84484; 85025; 96374; 99284; A9270; J3010; Q9967

== ENCOUNTER 2020-12-21 18:43 | Observation (INO) | payer MEDICARE, MEDICAID ==
--- NOTE | 2020-12-21 19:02 | PCM.EKG ---
#1 Interpretation EKG Date: 12/21/20 Time: 18:52 Rhythm: NSR Rate (Beats/Min): 46 [place]: Normal P-Wave: Present QRS: Normal ST-T: Normal QT: Normal Comparison: No Change (08/20/19) EKG Interpretation Comments: Sinus Bradycardia
[2020-12-21 20:22] LABS: BLOOD UREA NITROGEN,BUN 13 mg/dL (7.0-18.0); CHLORIDE,CL 102 mmol/L (98-107); GLUCOSE RANDOM 96 mg/dL (74-106); LIPASE 103 U/L (73-393); POTASSIUM,K 4.1 mmol/L (3.5-5.1); SODIUM,NA 139 mmol/L (136-145)
[2020-12-21] MEDS ORDERED: Acetaminophen/HYDROcodone 325-5 MG Tab PO ONE (20:44)
--- NOTE | 2020-12-21 21:00 | CR ---
INDICATION: Right-sided chest pain. Shortness of breath. COMPARISON: 06/09/2019. FINDINGS: A portable AP view of the chest were obtained. The cardiac silhouette is enlarged. There are sternotomy wires. The pulmonary vasculature is within normal limits. The lungs are clear bilaterally. IMPRESSION: No evidence of acute pulmonary disease Cardiomegaly. Dictated by Dereck Montelongo MD @ 12/21/2020 8:59:[address] Dereck Montelongo @ Dec 21 2020 8:59PM
[2020-12-21] MEDS ORDERED: Iopamidol 755 Mg/ML 100 ML Bottle IVPUSH ONE (22:15)
--- NOTE | 2020-12-21 23:20 | CT ---
INDICATION: Right upper quadrant pain TECHNIQUE: CT Abdomen and pelvis with i.v. contrast. Coronal and sagittal reformats were obtained. CONTRAST: 100 mL Isovue 370 COMPARISON: 05/07/2020 FINDINGS: Lower chest: Unremarkable. A prosthetic tricuspid valve is noted. Liver: The liver has a nodular capsular contour, consistent with micronodular cirrhosis. No focal liver lesions are identified on portal venous imaging. Spleen: Unremarkable. Pancreas: Unremarkable. Gallbladder: Previous cholecystectomy noted without significant intra- or extrahepatic biliary ductal dilatation seen. Kidney: Unremarkable. No kidney or ureteral stones or obstruction seen. Adrenal: Unremarkable. Bowel: Unremarkable. The appendix is normal in appearance and size. Vascular: Unremarkable. Lymph: Unremarkable. Peritoneum: Unremarkable. No pneumoperitoneum is seen. No significant ascites is noted. Pelvis: The uterus is enlarged and heterogeneous in appearance, likely due to uterine fibroids. The size is similar to prior examination. Soft tissue: Unremarkable. Bone: Unremarkable for age. IMPRESSION: 1. The liver has a nodular capsular contour, consistent with micronodular cirrhosis. No focal liver lesions are identified on portal venous imaging. Dictated by Toan Soto MD @ 12/21/2020 11:18:19 PM Please note that all CT scans at this facility use dose modulation, iterative reconstruction, and/or weight-based dosing when appropriate to reduce radiation dose to as low as reasonably achievable. Dictated by: Toan Soto MD @ 12/21/2020 23:18:33 (Electronically Signed)
[2020-12-21] MEDS ORDERED: Ondansetron 4 MG/2 ML SDV IVPUSH ONE (23:22)
[2020-12-22] MEDS ORDERED: Acetaminophen 325 MG Tab PO PRN (00:54)
[2020-12-22] MEDS ORDERED: Acetaminophen/HYDROcodone 325-5 MG Tab PO PRN (00:54)
--- NOTE | 2020-12-22 02:25 | EDM.PDOC ---
ED HPI GENERAL MEDICAL PROBLEM - General Chief Complaint: Upper Extremity Injury/Pain Stated Complaint: RT SHOULDER PAIN AND SOB Time Seen by Provider: 12/21/20 19:02 - History of Present Illness INITIAL COMMENTS - FREE TEXT/NARRATIVE: CHIEF COMPLAINT(S): Right-sided chest pain HISTORY OF PRESENT ILLNESS: This is a 45-year-old woman in with a past medical history of Lazwb-Gykyqxtpx-Fixno status post ablation and valve repair who comes to the emergency department with a chief complaint of right-sided chest pain. The patient states that she was sitting at home when she started to experience pain in her right shoulder that started on the right side of her chest wall and abdomen which she describes as sharp and worse with deep inspiration. She states that she does have some shortness of breath but denies any cough. She then developed some nausea but denied any vomiting. She rates her pain as 9 out of 10. She has not yet tried any pain medications. Therefore there are no relieving factors. She denies any recent travel, recent surgery, prior history of DVT or PE. She states that 2 days ago she called her heat treat inspector because she felt like she was having an arrhythmia and they told her to come in however it stopped and has been intermittent since that time. She denies any syncope, lower extremity swelling, blood in her stool or blood in vomit. She denies any other symptoms. REVIEW OF SYSTEMS: Constitutional: Denies fever, chills. Eyes: Denies eye pain Ears, Nose, Mouth, & Throat: Denies earache Cardiovascular: Positive for right-sided chest pain Respiratory: Positive for shortness of breath Gastrointestinal: Positive for right upper quadrant abdominal pain and nausea. Denies vomiting, diarrhea, hematochezia. Genitourinary: Denies hematuria, dysuria Skin:Denies a rash MSK: Positive for right shoulder pain denies joint pain Neurological: Denies blurred vision, numbness, tingling, weakness Psychiatric: Denies depression PAST MEDICAL HISTORY: As per history of present illness and as reviewed below otherwise noncontributory. SURGICAL HISTORY: As per history of present illness and as reviewed below otherwise noncontributory. SOCIAL HISTORY: As per history of present illness and as reviewed below otherwise noncontributory. FAMILY HISTORY: As per history of present illness and as reviewed below otherwise noncontributory. EXAMINATION OF ORGAN SYSTEMS/BODY AREAS: Constitutional: Blood pressure is 136/55, heart rate 47, respiratory rate 17 with a oxygen saturation of 98% on room air. Temperature 36.4 General: Overall well-appearing woman who is in no acute distress Psychiatric: Appropriate mood and affect. Eyes: No scleral icterus or conjunctival erythema ENMT: Moist mucous membranes. No pharyngeal erythema Cardiovascular: Regular, rate, and rhythm. No gallops, murmurs, or rubs. Bilateral upper extremity pulses symmetric and intact. No peripheral edema. No JVD. There is right-sided lower chest wall pain to palpation. Respiratory: Lungs clear to auscultation bilaterally. No wheezes, rales, or rhonchi. No increased work of breathing. Gastrointestinal: Soft, nondistended, tenderness to palpation in the right upper quadrant. Negative Godinez's and McBurney's. No rebound or guarding. Normoactive bowel sounds Genitourinary: No suprapubic tenderness no CVA tenderness musculoskeletal: Normal range of motion of the right shoulder. No deformity. No swelling. Skin: No lesions or abrasions. Neurological: Alert, GCS 15 MEDICAL DECISION MAKING AND COURSE IN THE ED WITH INTERPRETATION/REVIEW OF DIAGNOSTIC STUDIES: This is a 45-year-old and with a past medical history of Kykcd-Iyzhkrzoc-Obffh status post ablation and valvular repair who comes to the emergency department with right-sided chest wall, abdomen, and right shoulder pain associated with shortness of breath who is bradycardic and normotensive. The patient did not take her diltiazem today as per recommendations from her heat treat inspector as he told her not to take it if her heart rate is less than 60. At this time given her cardiac history we did obtain an EKG which did not reveal any acute signs of ischemia. There was no widened QRS or signs of WPW. We will obtain a cardiac work-up. Will obtain CBC, CMP, TSH, T4, lipase, Covid and troponin. Differential does include hepatitis, pneumonia, ACS, pneumothorax, chest wall pain. Will obtain a chest x-ray. We will provide the patient with [place] for pain relief. surveillance monitor revealed sinus bradycardia and pulse oximetry with good waveform was appropriate saturation. Laboratory: CBC reveals a hemoglobin of 11.7 and thrombocytosis with a platelet count of 401 otherwise unremarkable. D-dimer is negative therefore low risk for PE. CMP is unremarkable. Troponin is negative. TSH is 3.82, T4 0.97. Lipase is 103. Covid is negative. The radiological images were viewed by myself along with reading the report from the radiologist. Chest x-ray reveals cardiomegaly without any evidence of acute cardiopulmonary process. On reevaluation the patient had continued pain. At this time given the location of her abdominal pain will obtain a CT abdomen pelvis with contrast. The patient continued to remain bradycardic however normotensive. She did complain of some nausea at this time therefore I did provide her with Zofran. Urinalysis was a clean catch and was negative for leukocyte esterase, negative for nitrites, and trace for blood. Interpretation: Microscopic hematuria The radiological images were viewed by myself along with reading the report from the radiologist. CT abdomen pelvis with contrast reveals nodular cirrhosis which is unchanged from prior. Otherwise no acute intra-abdominal process to describe the patient's pain. On reevaluation the patient had continued pain. Repeat troponin at this time was negative. I did discuss with her that her work-up thus far has been negative however given her cardiac history would like to admit her for observation for chest pain. She was amenable to this plan. I contacted Dr. Schwartz who accepted the patient for observation admission. DISPOSITION: The patient is admitted for observation in stable condition CONDITION: Fair PROCEDURES: Cardiac monitoring interpretation, pulse oximetry interpretation FINAL IMPRESSION(S)/DIAGNOSES: 1. Acute atypical chest pain 2. Acute sinus bradycardia likely secondary to medication Yahir Donohue M.D. abdominal Pain Score (Numeric/FACES): 9 - Related Data Allergies Allergy/AdvReac Type Severity Reaction Status Date / Time No Known Allergies Allergy Verified 12/21/20 19:03 Home Meds: Home Meds ALPRAZolam 2 mg PO TID 12/21/20 [History] Diltiazem [Dilacor XR] 180 mg PO DAILY 12/21/20 [History] Linaclotide [Linzess] 145 mcg PO DAILY 12/21/20 [History] Omeprazole 40 mg PO DAILY 12/21/20 [History] Spironolactone [Aldactone] 25 mg PO DAILY 12/21/20 [History] Past Medical History HEENT History: Reports: Impaired Vision Cardiovascular History: Reports: Arrhythmia, High Cholesterol Other Cardiovascular History: 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 Respiratory History: Reports: Bronchitis, Recurrent Gastrointestinal History: Reports: GERD Genitourinary History: Reports: None 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: x4 Musculoskeletal History: Reports: Arthritis Neurological History: Reports: None Psychiatric History: Reports: Anxiety Endocrine/Metabolic History: Reports: None Hematologic History: Reports: None - Infectious Disease History Infectious Disease History: Reports: Chicken Pox - Past Surgical History HEENT Surgical History: Reports: None Cardiovascular Surgical History: Reports: Valve Replacement Respiratory Surgical History: Reports: None GI Surgical History: Reports: Cholecystectomy Female Surgical History: Reports: Tubal Ligation Musculoskeletal Surgical History: Reports: None Social & Family History - Family History Family Medical History: No Pertinent Family History - Tobacco Use Tobacco Use Status *Q: Never Tobacco User - Caffeine Use Caffeine Use: Reports: Coffee - Recreational Drug Use Recreational Drug Use: No ED ROS GENERAL - Review of Systems Review Of Systems: See Below ED EXAM, GENERAL - Physical Exam Exam: See Below Course - Vital Signs Last Recorded V/S: Last Vital Signs Temp 36.4 C 12/21/20 19:04 Pulse 52 L 12/22/20 00:13 Resp 16 12/22/20 00:13 BP 122/46 L 12/22/20 00:13 Pulse Ox 97 12/22/20 00:13 - Orders/Labs/Meds Orders: Active Orders 24 hr Category Date Time Status Admission Status [Patient Status] [ADT] Stat ADT 12/21/20 23:54 Active EKG Documentation Completion [RC] STAT Care 12/21/20 19:40 Active Medication Orders Acetaminophen (Acetaminophen 325 Mg Tab) 650 mg PO Q4H PRN PRN Reason: Pain Hydrocodone Bitart/Acetaminophen (Acetaminophen/Hydrocodone 325-5 Mg Tab) 1 tab PO Q4H PRN PRN Reason: Pain Non-Formulary Medication (Omeprazole [Omeprazole]) 40 mg PO DAILY TROY Spironolactone (Spironolactone 25 Mg Tab) 25 mg PO DAILY TROY Labs: Laboratory Tests 12/21/20 12/21/20 12/21/20 Range/Units 19:30 19:37 19:37 WBC 8.64 (4.0-11.0) K/uL RBC 4.47 (4.30-5.90) M/uL Hgb 11.7 L (12.0-16.0) g/dL Hct 36.9 (36.0-46.0) % MCV 82.6 (80.0-98.0) fL MCH 26.2 L (27.0-32.0) pg MCHC 31.7 (31.0-37.0) g/dL RDW Std Deviation 45.7 (28.0-62.0) fl RDW Coeff of Robi 15 (11.0-15.0) % Plt Count 401 H (150-400) K/uL MPV 9.90 (7.40-12.00) fL Neut % (Auto) 70.3 (48.0-80.0) % Lymph % (Auto) 22.2 (16.0-40.0) % [place] % (Auto) 5.9 (0.0-15.0) % Eos % (Auto) 1.4 (0.0-7.0) % Baso % (Auto) 0.2 (0.0-1.5) % Neut # (Auto) 6.1 H (1.4-5.7) K/uL Lymph # (Auto) 1.9 (0.6-2.4) K/uL [place] # (Auto) 0.5 (0.0-0.8) K/uL Eos # (Auto) 0.1 (0.0-0.7) K/uL Baso # (Auto) 0.0 (0.0-0.1) K/uL Nucleated RBC % 0.0 /100WBC Nucleated RBCs # 0 K/uL D-Dimer, Quantitative 0.33 (0.0-0.50) mg/L FEU Sodium 139 (136-145) mmol/L Potassium 4.1 (3.5-5.1) mmol/L Chloride 102 (98-107) mmol/L Carbon Dioxide 27.0 (21.0-32.0) mmol/L BUN 13 (7.0-18.0) mg/dL Creatinine 0.8 (0.6-1.0) mg/dL Est Cr Clr Drug Dosing 94.76 mL/min Estimated GFR (MDRD) > 60.0 ml/min Glucose 96 (74-106) mg/dL Calcium 9.0 (8.5-10.1) mg/dL Magnesium 2.1 (1.8-2.4) mg/dL Total Bilirubin 0.4 (0.2-1.0) mg/dL AST 15 (15-37) IU/L ALT 23 (14-63) IU/L Alkaline Phosphatase 82 (46-116) U/L Troponin I < 0.050 (0.000-0.056) ng/mL Total Protein 8.6 H (6.4-8.2) g/dL Albumin 3.7 (3.4-5.0) g/dL Globulin 4.9 H (2.6-4.0) g/dL Albumin/Globulin Ratio 0.8 L (0.9-1.6) Lipase 103 (73-393) U/L Free T4 (0.76-1.46) ng/dL TSH 3rd Generation 3.82 H (0.36-3.74) uIU/mL Urine Color Urine Appearance Urine pH (5.0-8.0) Ur Specific [place] (1.001-1.035) Urine Protein (NEGATIVE) mg/dL Urine Glucose (UA) (NEGATIVE) mg/dL Urine Ketones (NEGATIVE) mg/dL Urine Occult Blood (NEGATIVE) Urine Nitrite (NEGATIVE) Urine Bilirubin (NEGATIVE) Urine Urobilinogen (<2.0) EU/dL Ur Leukocyte Esterase (NEGATIVE) Urine RBC (0-2/HPF) Urine WBC (0-5/HPF) Ur Epithelial Cells (NONE-FEW) Urine Bacteria (NEGATIVE) Urine Mucus (NONE-MOD) Urine HCG, Qual (NEGATIVE) SARS-CoV-2 RNA (SVITLANA) (NEGATIVE) 12/21/20 12/21/20 12/21/20 Range/Units 19:37 19:44 20:50 WBC (4.0-11.0) K/uL RBC (4.30-5.90) M/uL Hgb (12.0-16.0) g/dL Hct (36.0-46.0) % MCV (80.0-98.0) fL MCH (27.0-32.0) pg MCHC (31.0-37.0) g/dL RDW Std Deviation (28.0-62.0) fl RDW Coeff of Robi (11.0-15.0) % Plt Count (150-400) K/uL MPV (7.40-12.00) fL Neut % (Auto) (48.0-80.0) % Lymph % (Auto) (16.0-40.0) % [place] % (Auto) (0.0-15.0) % Eos % (Auto) (0.0-7.0) % Baso % (Auto) (0.0-1.5) % Neut # (Auto) (1.4-5.7) K/uL Lymph # (Auto) (0.6-2.4) K/uL [place] # (Auto) (0.0-0.8) K/uL Eos # (Auto) (0.0-0.7) K/uL Baso # (Auto) (0.0-0.1) K/uL Nucleated RBC % /100WBC Nucleated RBCs # K/uL D-Dimer, Quantitative (0.0-0.50) mg/L FEU Sodium (136-145) mmol/L Potassium (3.5-5.1) mmol/L Chloride (98-107) mmol/L Carbon Dioxide (21.0-32.0) mmol/L BUN (7.0-18.0) mg/dL Creatinine (0.6-1.0) mg/dL Est Cr Clr Drug Dosing mL/min Estimated GFR (MDRD) ml/min Glucose (74-106) mg/dL Calcium (8.5-10.1) mg/dL Magnesium (1.8-2.4) mg/dL Total Bilirubin (0.2-1.0) mg/dL AST (15-37) IU/L ALT (14-63) IU/L Alkaline Phosphatase (46-116) U/L Troponin I (0.000-0.056) ng/mL Total Protein (6.4-8.2) g/dL Albumin (3.4-5.0) g/dL Globulin (2.6-4.0) g/dL Albumin/Globulin Ratio (0.9-1.6) Lipase (73-393) U/L Free T4 0.97 (0.76-1.46) ng/dL TSH 3rd Generation (0.36-3.74) uIU/mL Urine Color Urine Appearance Urine pH (5.0-8.0) Ur Specific [place] (1.001-1.035) Urine Protein (NEGATIVE) mg/dL Urine Glucose (UA) (NEGATIVE) mg/dL Urine Ketones (NEGATIVE) mg/dL Urine Occult Blood (NEGATIVE) Urine Nitrite (NEGATIVE) Urine Bilirubin (NEGATIVE) Urine Urobilinogen (<2.0) EU/dL Ur Leukocyte Esterase (NEGATIVE) Urine RBC (0-2/HPF) Urine WBC (0-5/HPF) Ur Epithelial Cells (NONE-FEW) Urine Bacteria (NEGATIVE) Urine Mucus (NONE-MOD) Urine HCG, Qual NEGATIVE (NEGATIVE) SARS-CoV-2 RNA (SVITLANA) NEGATIVE (NEGATIVE) 12/21/20 12/21/20 Range/Units 21:26 22:31 WBC (4.0-11.0) K/uL RBC (4.30-5.90) M/uL Hgb (12.0-16.0) g/dL Hct (36.0-46.0) % MCV (80.0-98.0) fL MCH (27.0-32.0) pg MCHC (31.0-37.0) g/dL RDW Std Deviation (28.0-62.0) fl RDW Coeff of Robi (11.0-15.0) % Plt Count (150-400) K/uL MPV (7.40-12.00) fL Neut % (Auto) (48.0-80.0) % Lymph % (Auto) (16.0-40.0) % [place] % (Auto) (0.0-15.0) % Eos % (Auto) (0.0-7.0) % Baso % (Auto) (0.0-1.5) % Neut # (Auto) (1.4-5.7) K/uL Lymph # (Auto) (0.6-2.4) K/uL [place] # (Auto) (0.0-0.8) K/uL Eos # (Auto) (0.0-0.7) K/uL Baso # (Auto) (0.0-0.1) K/uL Nucleated RBC % /100WBC Nucleated RBCs # K/uL D-Dimer, Quantitative (0.0-0.50) mg/L FEU Sodium (136-145) mmol/L Potassium (3.5-5.1) mmol/L Chloride (98-107) mmol/L Carbon Dioxide (21.0-32.0) mmol/L BUN (7.0-18.0) mg/dL Creatinine (0.6-1.0) mg/dL Est Cr Clr Drug Dosing mL/min Estimated GFR (MDRD) ml/min Glucose (74-106) mg/dL Calcium (8.5-10.1) mg/dL Magnesium (1.8-2.4) mg/dL Total Bilirubin (0.2-1.0) mg/dL AST (15-37) IU/L ALT (14-63) IU/L Alkaline Phosphatase (46-116) U/L Troponin I < 0.050 (0.000-0.056) ng/mL Total Protein (6.4-8.2) g/dL Albumin (3.4-5.0) g/dL Globulin (2.6-4.0) g/dL Albumin/Globulin Ratio (0.9-1.6) Lipase (73-393) U/L Free T4 (0.76-1.46) ng/dL TSH 3rd Generation (0.36-3.74) uIU/mL Urine Color YELLOW Urine Appearance CLEAR Urine pH 7.0 (5.0-8.0) Ur Specific [place] 1.025 (1.001-1.035) Urine Protein NEGATIVE (NEGATIVE) mg/dL Urine Glucose (UA) NEGATIVE (NEGATIVE) mg/dL Urine Ketones NEGATIVE (NEGATIVE) mg/dL Urine Occult Blood TRACE-INTACT H (NEGATIVE) Urine Nitrite NEGATIVE (NEGATIVE) Urine Bilirubin NEGATIVE (NEGATIVE) Urine Urobilinogen 1.0 (<2.0) EU/dL Ur Leukocyte Esterase NEGATIVE (NEGATIVE) Urine RBC 0-3 (0-2/HPF) Urine WBC 0-2 (0-5/HPF) Ur Epithelial Cells FEW (NONE-FEW) Urine Bacteria OCCASIONAL (NEGATIVE) Urine Mucus LIGHT (NONE-MOD) Urine HCG, Qual (NEGATIVE) SARS-CoV-2 RNA (SVITLANA) (NEGATIVE) Meds: Medications Generic Name Dose Route Start Last Admin Trade Name Freq PRN Reason Stop Dose Admin Acetaminophen 650 mg 12/22/20 00:54 Acetaminophen 325 Mg Tab PO Q4H PRN Pain Hydrocodone Bitart/Acetaminophen 1 tab 12/22/20 00:54 Acetaminophen/Hydrocodone 325-5 Mg Tab PO Q4H PRN Pain Non-Formulary Medication 40 mg 12/22/20 09:00 Omeprazole [Omeprazole] PO DAILY TROY Spironolactone 25 mg 12/22/20 09:00 Spironolactone 25 Mg Tab PO DAILY TROY Discontinued Medications Generic Name Dose Route Start Last Admin Trade Name Paty PRN Reason Stop Dose Admin Hydrocodone Bitart/Acetaminophen 1 tab 12/21/20 20:44 12/21/20 20:51 Acetaminophen/Hydrocodone 325-5 Mg Tab PO 12/21/20 20:45 1 tab ONETIME ONE Administration Iopamidol 100 ml 12/21/20 22:15 12/21/20 22:16 Iopamidol 755 Mg/Ml 100 Ml Bottle IVPUSH 12/21/20 22:16 100 ml ONETIME ONE Administration Ondansetron HCl 4 mg 12/21/20 23:22 12/21/20 23:40 Ondansetron 4 Mg/2 Ml Sdv IVPUSH 12/21/20 23:23 4 mg ONETIME ONE Administration Departure - Departure Time of Disposition: 23:54 Disposition: Still A Patient 30 Clinical Impression: Chest pain, Bradycardia - Discharge Information Sepsis Event Note (ED) - Evaluation Sepsis Screening Result: No Definite Risk - Focused Exam Vital Signs: Vital Signs Temp Pulse Resp BP Pulse Ox 12/22/20 00:13 52 L 16 122/46 L 97 12/21/20 23:31 52 L 16 137/59 L 99 12/21/20 21:04 45 L 18 119/46 L 99 12/21/20 20:04 46 L 18 138/56 L 96 12/21/20 19:04 36.4 C 47 L 17 136/55 L 98 - My Orders Last 24 Hours: My Active Orders 12/21/20 19:40 EKG Documentation Completion [RC] STAT 12/21/20 23:54 Admission Status [Patient Status] [ADT] Stat - Assessment/Plan Last 24 Hours: My Active Orders 12/21/20 19:40 EKG Documentation Completion [RC] STAT 12/21/20 23:54 Admission Status [Patient Status] [ADT] Stat
--- NOTE | 2020-12-22 08:20 | PCM.HP.2 ---
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 She reports that she was sitting at home where she has been packing her home for moving in the next few weeks. She reports she was at rest and suddenly started having pain to the right lower chest that radiated to her right shoulder got worse with deep inspiration or movement. She reports the pain is sharp and sudden. Denies any chest pain on the left no shortness of breath. No diaphoresis and no neck pain. She reports that she recently saw orthopedics due to tendinitis of her right shoulder she feels that this is similar pain but is now lower. She reports she has a history of cholecystectomy. She denies any recent trauma or injury. She reports that she has been in contact with her carrot grader inspector recently due to bradycardia. Cardiology had recommended her to hold her diltiazem if her heart rate was too low, below 60 and that he would see her in the next coming weeks. In the ER lab work essentially normal. Troponin negative. TSH 3.82. EKG sinus rhythm with no signs of acute ischemia. No widened QRS and no signs of Hwsbr-Dzkgztvaf-Pucez. Chest x-ray negative for pulmonary concerns and no osseous concerns but does reveal cardiomegaly. CT of her abdomen revealed nodular cirrhosis which was noted prior. Otherwise no acute findings. Patient continued to have right-sided chest pain in the ER due to her heart score oh so she should be monitored overnight for signs of ACS. PCP Dr. Vásquez Journeyman Level [employer]st Dr. Charles abdominal Pain Score (Numeric/FACES): 9 - Related Data Allergies/Adverse Reactions: Allergies Allergy/AdvReac Type Severity Reaction Status Date / Time No Known Allergies Allergy Verified 12/21/20 19:03 Home Medications: Home Meds ALPRAZolam 2 mg PO TID 12/21/20 [History] Linaclotide [Linzess] 145 mcg PO DAILY 12/21/20 [History] Omeprazole 40 mg PO DAILY 12/21/20 [History] Spironolactone [Aldactone] 25 mg PO DAILY 12/21/20 [History] Acetaminophen [Tylenol] 650 mg PO Q4H PRN tablet 12/22/20 [Rx] Past Medical History HEENT History: Reports: Impaired Vision Cardiovascular History: Reports: Arrhythmia, High Cholesterol Other Cardiovascular History: 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 Respiratory History: Reports: Bronchitis, Recurrent Gastrointestinal History: Reports: GERD Genitourinary History: Reports: None 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: Other OB/BYN History: x4 Musculoskeletal History: Reports: Arthritis Neurological History: Reports: None Psychiatric History: Reports: Anxiety Endocrine/Metabolic History: Reports: None Hematologic History: Reports: None - Infectious Disease History Infectious Disease History: Reports: Chicken Pox - Past Surgical History HEENT Surgical History: Reports: None Cardiovascular Surgical History: Reports: Valve Replacement Respiratory Surgical History: Reports: None GI Surgical History: Reports: Cholecystectomy Female Surgical History: Reports: Tubal Ligation Musculoskeletal Surgical History: Reports: None Social & Family History - Family History Family Medical History: No Pertinent Family History - Tobacco Use Tobacco Use Status *Q: Never Tobacco User - Caffeine Use Caffeine Use: Reports: Coffee - Alcohol Use Alcohol Use History: No - Recreational Drug Use Recreational Drug Use: No - Living Situation & Occupation Living situation: Reports: H&P Review of Systems - Review of Systems: Review Of Systems: See Below General: Reports: No Symptoms. Denies: Fever, Chills, Malaise, Weakness HEENT: Reports: No Symptoms. Denies: Headaches, Sinus Congestion, Vertigo Pulmonary: Reports: No Symptoms. Denies: Shortness of Breath Cardiovascular: Reports: Chest Pain (Right-sided) Gastrointestinal: Reports: Abdominal Pain (Right-sided upper abdominal) Genitourinary: Denies: Dysuria, Frequency Musculoskeletal: Reports: Shoulder Pain (Right shoulder). Denies: Neck Pain Skin: Reports: No Symptoms Psychiatric: Reports: No Symptoms Neurological: Reports: No Symptoms Hematologic/Lymphatic: Reports: No Symptoms Immunologic: Reports: No Symptoms Exam - Exam Exam: See Below - Vital Signs Vital Signs: Last Vital Signs Temp 97.9 F 12/22/20 03:00 Pulse 53 L 12/22/20 03:00 Resp 17 12/22/20 03:00 BP 146/77 H 12/22/20 03:00 Pulse Ox 98 12/22/20 03:00 Weight: 132.449 kg - Exam General: Alert, Oriented, Cooperative Neck: Supple, Trachea Midline Lungs: Clear to Auscultation, Normal Respiratory Effort Cardiovascular: Regular Rate, Regular Rhythm, Other (Mechanical click) GI/Abdominal Exam: Normal Bowel Sounds, Soft, Non-Tender, Other (Tenderness noted to palpation of right upper abdomen just below rib cage very little palpation induces pain.) Back Exam: Normal Inspection, Full Range of Motion Skin: Warm, Dry, Intact Neuro Extensive - Motor, Sensory, Reflexes: CN II-XII Intact Psychiatric: Alert, Normal Affect, Normal Mood - Patient Data Lab Results Last 24 hrs: Laboratory Results - last 24 hr 12/21/20 12/21/20 12/21/20 Range/Units 19:30 19:37 19:37 WBC 8.64 (4.0-11.0) K/uL RBC 4.47 (4.30-5.90) M/uL Hgb 11.7 L (12.0-16.0) g/dL Hct 36.9 (36.0-46.0) % MCV 82.6 (80.0-98.0) fL MCH 26.2 L (27.0-32.0) pg MCHC 31.7 (31.0-37.0) g/dL RDW Std Deviation 45.7 (28.0-62.0) fl RDW Coeff of Robi 15 (11.0-15.0) % Plt Count 401 H (150-400) K/uL MPV 9.90 (7.40-12.00) fL Neut % (Auto) 70.3 (48.0-80.0) % Lymph % (Auto) 22.2 (16.0-40.0) % [place] % (Auto) 5.9 (0.0-15.0) % Eos % (Auto) 1.4 (0.0-7.0) % Baso % (Auto) 0.2 (0.0-1.5) % Neut # (Auto) 6.1 H (1.4-5.7) K/uL Lymph # (Auto) 1.9 (0.6-2.4) K/uL [place] # (Auto) 0.5 (0.0-0.8) K/uL Eos # (Auto) 0.1 (0.0-0.7) K/uL Baso # (Auto) 0.0 (0.0-0.1) K/uL Nucleated RBC % 0.0 /100WBC Nucleated RBCs # 0 K/uL D-Dimer, Quantitative 0.33 (0.0-0.50) mg/L FEU Sodium 139 (136-145) mmol/L Potassium 4.1 (3.5-5.1) mmol/L Chloride 102 (98-107) mmol/L Carbon Dioxide 27.0 (21.0-32.0) mmol/L BUN 13 (7.0-18.0) mg/dL Creatinine 0.8 (0.6-1.0) mg/dL Est Cr Clr Drug Dosing 94.76 mL/min Estimated GFR (MDRD) > 60.0 ml/min Glucose 96 (74-106) mg/dL Calcium 9.0 (8.5-10.1) mg/dL Magnesium 2.1 (1.8-2.4) mg/dL Total Bilirubin 0.4 (0.2-1.0) mg/dL AST 15 (15-37) IU/L ALT 23 (14-63) IU/L Alkaline Phosphatase 82 (46-116) U/L Troponin I < 0.050 (0.000-0.056) ng/mL Total Protein 8.6 H (6.4-8.2) g/dL Albumin 3.7 (3.4-5.0) g/dL Globulin 4.9 H (2.6-4.0) g/dL Albumin/Globulin Ratio 0.8 L (0.9-1.6) Lipase 103 (73-393) U/L Free T4 (0.76-1.46) ng/dL TSH 3rd Generation 3.82 H (0.36-3.74) uIU/mL Urine Color Urine Appearance Urine pH (5.0-8.0) Ur Specific [place] (1.001-1.035) Urine Protein (NEGATIVE) mg/dL Urine Glucose (UA) (NEGATIVE) mg/dL Urine Ketones (NEGATIVE) mg/dL Urine Occult Blood (NEGATIVE) Urine Nitrite (NEGATIVE) Urine Bilirubin (NEGATIVE) Urine Urobilinogen (<2.0) EU/dL Ur Leukocyte Esterase (NEGATIVE) Urine RBC (0-2/HPF) Urine WBC (0-5/HPF) Ur Epithelial Cells (NONE-FEW) Urine Bacteria (NEGATIVE) Urine Mucus (NONE-MOD) Urine HCG, Qual (NEGATIVE) SARS-CoV-2 RNA (SVITLANA) (NEGATIVE) 12/21/20 12/21/20 12/21/20 Range/Units 19:37 19:44 20:50 WBC (4.0-11.0) K/uL RBC (4.30-5.90) M/uL Hgb (12.0-16.0) g/dL Hct (36.0-46.0) % MCV (80.0-98.0) fL MCH (27.0-32.0) pg MCHC (31.0-37.0) g/dL RDW Std Deviation (28.0-62.0) fl RDW Coeff of Robi (11.0-15.0) % Plt Count (150-400) K/uL MPV (7.40-12.00) fL Neut % (Auto) (48.0-80.0) % Lymph % (Auto) (16.0-40.0) % [place] % (Auto) (0.0-15.0) % Eos % (Auto) (0.0-7.0) % Baso % (Auto) (0.0-1.5) % Neut # (Auto) (1.4-5.7) K/uL Lymph # (Auto) (0.6-2.4) K/uL [place] # (Auto) (0.0-0.8) K/uL Eos # (Auto) (0.0-0.7) K/uL Baso # (Auto) (0.0-0.1) K/uL Nucleated RBC % /100WBC Nucleated RBCs # K/uL D-Dimer, Quantitative (0.0-0.50) mg/L FEU Sodium (136-145) mmol/L Potassium (3.5-5.1) mmol/L Chloride (98-107) mmol/L Carbon Dioxide (21.0-32.0) mmol/L BUN (7.0-18.0) mg/dL Creatinine (0.6-1.0) mg/dL Est Cr Clr Drug Dosing mL/min Estimated GFR (MDRD) ml/min Glucose (74-106) mg/dL Calcium (8.5-10.1) mg/dL Magnesium (1.8-2.4) mg/dL Total Bilirubin (0.2-1.0) mg/dL AST (15-37) IU/L ALT (14-63) IU/L Alkaline Phosphatase (46-116) U/L Troponin I (0.000-0.056) ng/mL Total Protein (6.4-8.2) g/dL Albumin (3.4-5.0) g/dL Globulin (2.6-4.0) g/dL Albumin/Globulin Ratio (0.9-1.6) Lipase (73-393) U/L Free T4 0.97 (0.76-1.46) ng/dL TSH 3rd Generation (0.36-3.74) uIU/mL Urine Color Urine Appearance Urine pH (5.0-8.0) Ur Specific [place] (1.001-1.035) Urine Protein (NEGATIVE) mg/dL Urine Glucose (UA) (NEGATIVE) mg/dL Urine Ketones (NEGATIVE) mg/dL Urine Occult Blood (NEGATIVE) Urine Nitrite (NEGATIVE) Urine Bilirubin (NEGATIVE) Urine Urobilinogen (<2.0) EU/dL Ur Leukocyte Esterase (NEGATIVE) Urine RBC (0-2/HPF) Urine WBC (0-5/HPF) Ur Epithelial Cells (NONE-FEW) Urine Bacteria (NEGATIVE) Urine Mucus (NONE-MOD) Urine HCG, Qual NEGATIVE (NEGATIVE) SARS-CoV-2 RNA (SVITLANA) NEGATIVE (NEGATIVE) 12/21/20 12/21/20 12/22/20 Range/Units 21:26 22:31 04:55 WBC (4.0-11.0) K/uL RBC (4.30-5.90) M/uL Hgb (12.0-16.0) g/dL Hct (36.0-46.0) % MCV (80.0-98.0) fL MCH (27.0-32.0) pg MCHC (31.0-37.0) g/dL RDW Std Deviation (28.0-62.0) fl RDW Coeff of Robi (11.0-15.0) % Plt Count (150-400) K/uL MPV (7.40-12.00) fL Neut % (Auto) (48.0-80.0) % Lymph % (Auto) (16.0-40.0) % [place] % (Auto) (0.0-15.0) % Eos % (Auto) (0.0-7.0) % Baso % (Auto) (0.0-1.5) % Neut # (Auto) (1.4-5.7) K/uL Lymph # (Auto) (0.6-2.4) K/uL [place] # (Auto) (0.0-0.8) K/uL Eos # (Auto) (0.0-0.7) K/uL Baso # (Auto) (0.0-0.1) K/uL Nucleated RBC % /100WBC Nucleated RBCs # K/uL D-Dimer, Quantitative (0.0-0.50) mg/L FEU Sodium (136-145) mmol/L Potassium (3.5-5.1) mmol/L Chloride (98-107) mmol/L Carbon Dioxide (21.0-32.0) mmol/L BUN (7.0-18.0) mg/dL Creatinine (0.6-1.0) mg/dL Est Cr Clr Drug Dosing mL/min Estimated GFR (MDRD) ml/min Glucose (74-106) mg/dL Calcium (8.5-10.1) mg/dL Magnesium (1.8-2.4) mg/dL Total Bilirubin (0.2-1.0) mg/dL AST (15-37) IU/L ALT (14-63) IU/L Alkaline Phosphatase (46-116) U/L Troponin I < 0.050 < 0.050 (0.000-0.056) ng/mL Total Protein (6.4-8.2) g/dL Albumin (3.4-5.0) g/dL Globulin (2.6-4.0) g/dL Albumin/Globulin Ratio (0.9-1.6) Lipase (73-393) U/L Free T4 (0.76-1.46) ng/dL TSH 3rd Generation (0.36-3.74) uIU/mL Urine Color YELLOW Urine Appearance CLEAR Urine pH 7.0 (5.0-8.0) Ur Specific [place] 1.025 (1.001-1.035) Urine Protein NEGATIVE (NEGATIVE) mg/dL Urine Glucose (UA) NEGATIVE (NEGATIVE) mg/dL Urine Ketones NEGATIVE (NEGATIVE) mg/dL Urine Occult Blood TRACE-INTACT H (NEGATIVE) Urine Nitrite NEGATIVE (NEGATIVE) Urine Bilirubin NEGATIVE (NEGATIVE) Urine Urobilinogen 1.0 (<2.0) EU/dL Ur Leukocyte Esterase NEGATIVE (NEGATIVE) Urine RBC 0-3 (0-2/HPF) Urine WBC 0-2 (0-5/HPF) Ur Epithelial Cells FEW (NONE-FEW) Urine Bacteria OCCASIONAL (NEGATIVE) Urine Mucus LIGHT (NONE-MOD) Urine HCG, Qual (NEGATIVE) SARS-CoV-2 RNA (SVITLANA) (NEGATIVE) Result Diagrams: 12/21/20 19:37 12/21/20 19:37 Sepsis Event Note - Evaluation Sepsis Screening Result: No Definite Risk - Focused Exam Vital Signs: Vital Signs Temp Pulse Resp BP Pulse Ox 12/22/20 03:00 97.9 F 53 L 17 146/77 H 98 12/22/20 00:13 52 L 16 122/46 L 97 12/21/20 23:31 52 L 16 137/59 L 99 12/21/20 21:04 45 L 18 119/46 L 99 - Problem List (1) Atypical chest pain SNOMED Code(s): 301669428 ICD Code: R07.89 - OTHER CHEST PAIN Status: Acute Current Visit: Yes (2) Mxqvp-Qoswoafhd-Ralyw syndrome SNOMED Code(s): 33007748 ICD Code: I45.6 - PRE-EXCITATION SYNDROME Status: Acute Current Visit: Yes (3) Bradycardia SNOMED Code(s): 34872091 ICD Code: R00.1 - BRADYCARDIA, UNSPECIFIED Status: Acute Current Visit: Yes Problem List Initiated/Reviewed/Updated: Yes Orders Last 24hrs: Active Orders 24 hr Category Date Time Status Admission Status [Patient Status] [ADT] Stat ADT 12/21/20 23:54 Active Antiembolic Devices [RC] PER UNIT ROUTINE Care 12/22/20 00:56 Active Cardiac Monitoring [RC] Q8H Care 12/22/20 00:57 Active Telemetry Monitoring [Cardiac Monitoring] [RC] . Care 12/22/20 00:57 Active DIRECTED Up ad Althea [RC] ASDIRECTED Care 12/22/20 00:55 Active VTE/DVT Education [RC] PER UNIT ROUTINE Care 12/22/20 00:54 Active Vital Signs [RC] Q4H Care 12/22/20 00:54 Active Regular Diet [DIET] Diet 12/22/20 Breakfast Active Acetaminophen [TylenoL] Med 12/22/20 00:54 Active 650 mg PO Q4H PRN Acetaminophen/HYDROcodone [[place] 325-5 MG] Med 12/22/20 00:54 Active 1 tab PO Q4H PRN Omeprazole [Omeprazole] Med 12/22/20 09:00 Active 40 mg PO DAILY Spironolactone [Aldactone] Med 12/22/20 09:00 Active 25 mg PO DAILY Sequential Compression Device [OM.PC] Routine Oth 12/22/20 00:54 Ordered Resuscitation Status Routine Resus Stat 12/22/20 00:54 Ordered Medication Orders Acetaminophen (Acetaminophen 325 Mg Tab) 650 mg PO Q4H PRN PRN Reason: Pain Hydrocodone Bitart/Acetaminophen (Acetaminophen/Hydrocodone 325-5 Mg Tab) 1 tab PO Q4H PRN PRN Reason: Pain Last Admin: 12/22/20 02:44 Dose: 1 tab Documented by: ALONSO Non-Formulary Medication (Omeprazole [Omeprazole]) 40 mg PO DAILY [facility] Spironolactone (Spironolactone 25 Mg Tab) 25 mg PO DAILY [facility] Assessment/Plan Comment:: This 45-year-old female admitted with atypical chest pain and bradycardia 1. Atypical chest pain: -Troponins trended x3 all negative -telemetry shows no signs of ischemic changes -ACS unlikely as pain is located on right upper abdomen and rib cage. -Chest pain likely secondary to arthritis versus costochondritis. Patient encouraged to limit exercise and repetitive movements. She was encouraged to ice and heat and use Tylenol as needed for pain. 2. Bradycardia -Patient has been in contact with her carrot grader inspector and spoke with the nurse this morning who was told she should hold diltiazem and they will be placing a Holter monitor on her. They arranged follow-up on January 13 here in [place] when they are at [facility]. Patient is to monitor her blood pressure and heart rate closely and she will be in contact with cardiology as an outpatient. -Heart rate here remains 50s to low 60s. Patient has been taking diltiazem approximately every other day due to heart rate being too low. She was directed to do this by carrot grader inspector previously Discharge plan: Catherine will be discharged home today. She will have follow-up with cardiology in the next coming weeks. She is to hold diltiazem for now due to her bradycardia. Holter monitor to be placed under direction of Dr. Charles, cardiology in [place]. Patient has been in contact with his office frequently due to this bradycardia that been happening at home. ACS unlikely she will follow-up with him as outpatient. Apical chest pain likely secondary to arthritis versus costochondritis. She was counseled to use heat and ice and limit excessive movements or exercise. She is use Tylenol as needed for pain. Should be discharged home today follow-up with PCP and cardiology as scheduled.
[2020-12-22] MEDS ORDERED: Non-Formulary Medication 1 Each (Omeprazole [Omeprazole] 40 MG Capsule.Dr) PO SCH (09:00)
[2020-12-22] MEDS ORDERED: Spironolactone 25 MG Tab PO SCH (09:00)
[2020-12-22] MEDS ORDERED: Ondansetron 4 MG/2 ML SDV IVPUSH ONE (11:45)
== END 2020-12-22 13:40 | disposition home or self-care (01) ==
LOC: MW.ED 18:43 → MW.MS 12-22 00:36
PROVIDERS: ADMIT Internal Medicine; ATTEND Internal Medicine
DX: R07.89 Other chest pain (principal); R00.1 Bradycardia, unspecified; I45.6 Pre-excitation syndrome; E78.00 Pure hypercholesterolemia, unspecified; Z98.890 Other specified postprocedural states; Z79.899 Other long term (current) drug therapy; Z90.49 Acquired absence of other specified parts of digestive tract; Z20.828 Contact with and (suspected) exposure to other viral communicable diseases
CPT/HCPCS: 36415; 71045; 74177; 80053; 81001; 81025; 83690; 83735; 84439; 84443; 84484; 85025; 85379; 93005; 96374; 96376; 99285; A9270; G0378; J2405; Q9967; U0002; 93010; 99284

== ENCOUNTER 2021-01-01 19:26 | Emergency (ER) | payer MEDICARE, MEDICAID ==
--- NOTE | 2021-01-01 19:42 | EDM.PDOC ---
ED HPI GENERAL MEDICAL PROBLEM - General Chief Complaint: General Stated Complaint: FEVER, COUGH Time Seen by Provider: 01/01/21 19:35 Source of Information: Reports: Patient History Limitations: Reports: No Limitations - History of Present Illness INITIAL COMMENTS - FREE TEXT/NARRATIVE: HISTORY AND PHYSICAL: History of present illness: Patient is a 45-year-old female who presents to the emergency room with her son with concerns of COVID-19. She states she lives in the same house as her son and he is recently lost his sense of taste and smell. She has noticed a dry nonproductive infrequent cough and a mild headache. She is supposed to leave for a vacation that is out of state in 3 days and would like to be tested for COVID-19 prior to her travels. Patient denies any fever, chills, change in vision, syncope or near syncope. Denies any chest pain, back pain, shortness of breath or hemoptysis. Denies any abdominal pain, nausea, vomiting, diarrhea, constipation or dysuria. Has not noted any blood in urine or stool. Patient has been eating and drinking appropriately. Review of systems: As per history of present illness and below otherwise all systems reviewed and negative. Past medical history: As per history of present illness and as reviewed below otherwise noncontributory. Surgical history: As per history of present illness and as reviewed below otherwise noncontributory. Social history: See social history for further information Family history: As per history of present illness and as reviewed below otherwise noncontributory. Physical exam: General: Well developed and well nourished 45-year-old female. Alert and orientated x 3. Nontoxic in appearance and in no acute distress. Vital signs are stable and have been reviewed by me. Nursing notes were reviewed. HEENT: Atraumatic, normocephalic, pupils equal and reactive bilaterally, negative for conjunctival pallor or scleral icterus, mucous membranes moist, TMs normal bilaterally, throat clear, neck supple, nontender, trachea midline. No drooling or trismus noted. No meningeal signs. No hot potato voice noted. Lungs: Clear to auscultation bilaterally. No wheezes, rales, or rhonchi. Chest nontender. Normal work of breathing, no accessory muscles used. Heart: S1S2, regular rate and rhythm without overt murmur, gallops, or rubs. No JVD. No peripheral edema Abdomen: Soft, nondistended, nontender. Skin: Intact, warm, dry. No lesions or rashes noted. Hematologic: No petechiae or purpra. Mucosa appropriate color and normal nail bed color and refill. Extremities: Atraumatic, moves all extremities per self without difficulty or deficits, negative for cords or calf pain. Neurovascular unremarkable. Neuro: Awake, alert, oriented. Cranial nerves II through XII unremarkable. Cer ebellum unremarkable. Motor and sensory unremarkable throughout. Exam nonfocal. Psychiatric: Mood and affect are appropriate. Normal thought process. Answering questions appropriately. Notes: *This patient was seen and evaluated during the 2019 SARS-CoV-2 novel coronavirus pandemic period. Community viral transmission is ongoing at time of this encounter and the emergency department is operating under pandemic response procedures. + COVID 19 results. I have talked with the patient about today's findings, in addition to providing specific details for plan of care. Reassessment at the time of disposition demonstrates that the patient is in no acute distress. The patient is stable for discharge, counseling was provided and we discussed in great detail signs and symptoms that would prompt them to return to the Emergency Department. Medication, follow up and supportive care measures were reviewed and discussed. Voices understanding and is agreeable to plan of care. Denies any further questions or concerns at this time. Diagnostics: COVID-19 Therapeutics: None Prescription: None Impression: COVID 19 Plan: 1. Your COVID-19 screening is positive. That means you do have the coronavirus and you are considered contagious. Your vital signs and oxygen saturation are well enough that you were able to monitor your symptoms at home. Continue to monitor for trouble breathing, new confusion or inability to arouse, bluish lips or face or any of the other symptoms we discussed -if this occurs please return to the emergency room. 2. Please self quarantine until cleared by [facility]. Inform any persons that you have been in contact with since you started becoming symptomatic that you have tested positive; they should be made aware and take the appropriate steps as needed. 3. You can take NyQuil during the evening to help get a restful night sleep. May alternate Tylenol and ibuprofen as needed for pain and fever management. 4. The [facility] will be calling you and following up with you. The [place] COVID 19 Hotline phone number , They are open Saturday - Saturday 7am - 7pm. Follow up with your primary care provider for re-evaluation and re-testing after the 10 day quarantine and discuss when you should be seen. Definitive disposition and diagnosis as appropriate pending reevaluation and review of above. Headache Pain Score (Numeric/FACES): 10 - Related Data Allergies Allergy/AdvReac Type Severity Reaction Status Date / Time No Known Allergies Allergy Verified 01/01/21 19:40 Home Meds: Home Meds ALPRAZolam 2 mg PO TID 12/21/20 [History] Linaclotide [Linzess] 145 mcg PO DAILY 12/21/20 [History] Omeprazole 40 mg PO DAILY 12/21/20 [History] Spironolactone [Aldactone] 25 mg PO DAILY 12/21/20 [History] Acetaminophen [Tylenol] 650 mg PO Q4H PRN tablet 12/22/20 [Rx] Past Medical History HEENT History: Reports: Impaired Vision Cardiovascular History: Reports: Arrhythmia, High Cholesterol Other Cardiovascular History: 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 Respiratory History: Reports: Bronchitis, Recurrent Gastrointestinal History: Reports: GERD Genitourinary History: Reports: None LINE HELPER History: Reports: Other LINE HELPER History: x4 Musculoskeletal History: Reports: Arthritis Neurological History: Reports: None Psychiatric History: Reports: Anxiety Endocrine/Metabolic History: Reports: None Hematologic History: Reports: None - Infectious Disease History Infectious Disease History: Reports: Chicken Pox - Past Surgical History HEENT Surgical History: Reports: None Cardiovascular Surgical History: Reports: Valve Replacement Respiratory Surgical History: Reports: None GI Surgical History: Reports: Cholecystectomy Female Surgical History: Reports: Tubal Ligation Musculoskeletal Surgical History: Reports: None Social & Family History - Family History Family Medical History: No Pertinent Family History - Caffeine Use Caffeine Use: Reports: Coffee - Living Situation & Occupation Living situation: Reports: ED ROS GENERAL - Review of Systems Review Of Systems: Comprehensive ROS is negative, except as noted in HPI. ED EXAM, GENERAL - Physical Exam Exam: See Below (See dictation) Course - Vital Signs Last Recorded V/S: Last Vital Signs Temp 98 F 01/01/21 19:41 Pulse 60 01/01/21 19:41 Resp 16 01/01/21 19:41 BP 140/70 05/16/21 19:41 Pulse Ox 97 01/01/21 19:41 - Orders/Labs/Meds Labs: Laboratory Tests 01/01/21 Range/Units 19:40 Influenza Type A RNA NEGATIVE (NEGATIVE) Influenza Type B RNA NEGATIVE (NEGATIVE) SARS-CoV-2 RNA ([facility]ITLANA) POSITIVE H (NEGATIVE) Departure - Departure Time of Disposition: 20:30 Disposition: Home, Self-Care 01 Clinical Impression: COVID-19 - Discharge Information Instructions: COVID-19 Referrals: Efra Vásquez MD [Primary Care Provider] - Forms: ED Department Discharge Additional Instructions: The following information is given to patients seen in the emergency department who are being discharged to home. This information is to outline your options for follow-up care. We provide all patients seen in our emergency department with a follow-up referral. The need for follow-up, as well as the timing and circumstances, are variable depending upon the specifics of your emergency department visit. If you don't have a primary care physician on staff, we will provide you with a referral. We always advise you to contact your personal physician following an emergency department visit to inform them of the circumstance of the visit and for follow-up with them and/or the need for any referrals to a consulting specialist. The emergency department will also refer you to a specialist when appropriate. This referral assures that you have the opportunity for follow-up care with a specialist. All of these measure are taken in an effort to provide you with optimal care, which includes your follow-up. Under all circumstances we always encourage you to contact your private physician who remains a resource for coordinating your care. When calling for follow-up care, please make the office aware that this follow-up is from your recent emergency room visit. If for any reason you are refused follow-up, please contact the [facility] Emergency Department at and asked to speak to the emergency department charge nurse. [facility] [address] [place] [id number] [id number] Thank you for choosing the [facility] emergency department in [place] for your medical needs today. It was a pleasure caring for you. Today you were seen in the emergency department for COVID-19 testing. 1. Your COVID-19 screening is positive. That means you do have the coronavirus and you are considered contagious. Your vital signs and oxygen saturation are well enough that you were able to monitor your symptoms at home. Continue to monitor for trouble breathing, new confusion or inability to arouse, bluish lips or face or any of the other symptoms we discussed -if this occurs please return to the emergency room. 2. Please self quarantine until cleared by [facility] Department. Inform any persons that you have been in contact with since you started becoming symptomatic that you have tested positive; they should be made aware and take the appropriate steps as needed. 3. You can take NyQuil during the evening to help get a restful night sleep. May alternate Tylenol and ibuprofen as needed for pain and fever management. 4. The [facility] will be calling you and following up with you. The [place] COVID 19 Hotline phone number , They are open Saturday - Saturday 7am - 7pm. Follow up with your primary care provider for re-evaluation and re-testing after the 10 day quarantine and discuss when you should be seen. Sepsis Event Note (ED) - Focused Exam Vital Signs: Vital Signs Temp Pulse Resp BP Pulse Ox 01/01/21 19:41 98 F 60 16 140/70 97
[2021-01-01 20:23] LABS: CORONAVIRUS COVID-19 NAA POSITIVE (NEGATIVE); INFLUENZA A NAA NEGATIVE (NEGATIVE); INFLUENZA B NAA NEGATIVE (NEGATIVE)
== END 2021-01-01 20:45 | disposition home or self-care (01) ==
LOC: MW.ED 19:26
DX: U07.1 COVID-19 (principal); K21.9 Gastro-esophageal reflux disease without esophagitis; Z79.899 Other long term (current) drug therapy
CPT/HCPCS: 0240U; 99283; 99282